=== PATIENT | female | born 1975 | race Caucasian/White ===

== ENCOUNTER 2017-02-17 17:19 | Emergency (ER) | payer OTHER ==
[2017-02-17] MEDS ORDERED: NALBUPHINE HCL 20 MG/ML AMPUL IM ONE (17:32)
[2017-02-17] MEDS ORDERED: ONDANSETRON 4 MG TAB.RAPDIS PO ONE (17:32)
[2017-02-17] MEDS ORDERED: NORMAL SALINE 500 ML IV ONE (17:32)
--- NOTE | 2017-02-17 17:46 | ERNOTE ---
Headache ER HPI - Narrative Date of Service: 02/17/17 - General Presenting Symptoms: "migraine" Time Seen by Provider: 02/17/17 17:24 Source: patient Exam Limitations: no limitations - Immun/Allergies/Home Medications Immunizations: IMMUNIZATION HX Immunizations Up to Date Yes History of Influenza Vaccine No Hx Pneumococcal Vaccination No Allergies/Adverse Reactions: Allergies cefaclor [From Ceclor] Allergy (Verified 02/17/17 17:33) ketorolac tromethamine [From Toradol] Allergy (Verified 02/17/17 17:33) Penicillins Allergy (Verified 02/17/17 17:33) sumatriptan [From Imitrex] Allergy (Verified 02/17/17 17:33) sumatriptan succinate [From Imitrex] Allergy (Verified 02/17/17 17:33) topiramate [From Topamax] Allergy (Verified 02/17/17 17:33) surgical tape Adverse Reaction (Severe, Uncoded 02/17/17 17:33) Other Home Medications: HOME MEDICATIONS Spironolactone [Aldactone] 25 mg PO DAILY 06/22/12 [Last Taken 07/04/12 10:00] Furosemide [Lasix] 160 mg PO DAILY 07/04/12 [Last Taken 07/04/12 10:00] Carvedilol [Coreg] 37.5 mg PO BID 02/03/13 [Last Taken Unknown] Digoxin [Lanoxin] 0.125 mg PO DAILY 02/03/13 [Last Taken Unknown] Potassium Chloride 20 meq PO DAILY 02/03/13 [Last Taken Unknown] Insulin Lispro [Humalog] 0 - 24 units SC AC #0 vial 02/04/13 [Last Taken Unknown ] Nitroglycerin [Nitrostat] 0.4 mg SL PRN PRN #0 btl 02/04/13 [Last Taken Unknown] Insulin Glargine,Hum.rec.anlog [Lantus] 20 unit SQ DAILY 08/08/13 [Last Taken Unknown] Losartan Potassium [Cozaar] 100 mg PO DAILY 03/24/14 [Last Taken Unknown] hydrALAZINE HCL [Apresoline] 50 mg PO TID 01/02/16 [Last Taken Unknown] Cyclobenzaprine HCl [Flexeril] 10 mg PO TID PRN #9 tablet 03/26/16 [Last Taken Unknown] - Pain Pain Score: 6 - History of Present Illness Narrative: 42-year-old female presents to the emergency room for migraine. Patient states it is behind her left eye. Vision states she's had this headache for 2 days now her [id number] medications are not helping. Date (Duration): 02/17/17 Timing of Headache: constant Context Headache: Present: new onset Quality: Present: pressure Severity Maximum: Present: mild Severity-Currently: Present: mild Headache frequency: Present: similar to previous headache Modifying Factors - (Worsens): Reports: movement, exposure to light Associated Symptoms: Reports: denies symptoms Exacerbated by:: Reports: light, noise Prior Treament: Reports: similar symptoms before Review of Systems - Review of Systems Constitutional: Present: no symptoms reported EYE: Present: no symptoms reported ENT: Present: no symptoms reported Respiratory: Present: no symptoms reported Cardiology: Present: no symptoms reported Gastrointestinal/Abdominal: Present: nausea, vomiting Genitourinary: Present: no symptoms reported Musculoskeletal: Present: no symptoms reported Skin: Present: no symptoms reported Neurological: Present: See HPI, headache Endocrine: Present: no symptoms reported Hematologic/Lymphatic: Present: no symptoms reported Psych: Present: no symptoms reported All Other Systems: All systems neg except as marked - Patient's Past Medical History Patient History - Medical: Migraines, Other Patient History - Cardiac/Respiratory: Bronchitis, CHF Patient History - Cancer: No Hx of Cancer Patient History - Surgical Procedures: D & C, Tubal Ligation, T & A, Other Patient History - Other: None LMP (females 10-50): last week - Social History Living Situations: home Psych History: No pertinent hx Smoking Status: Current every day smoker Alcohol Use: none Drug Use: none - Immunizations Immunizations Up to Date: Yes Hx Pneumococcal Vaccination: No History of Influenza Vaccine: No Physical Exam - Physical Exam General Appearance: Present: wd/wn, alert, mild distress Head Exam: Present: normal inspection, no evidence of injury Eye Exam: Normal inspection: bilateral Ears, Nose, Throat: Present: normal ENT inspection Neck: Present: normal inspection, nontender Respiratory: Present: no respiratory distress, normal breath sounds, no accessory muscle use, chest nontender, lungs clear Cardiovascular/Chest: Present: no murmur, normal peripheral pulses, tachycardia Gastrointestinal/Abdominal: Present: normal bowel sounds, nontender, nondistended, soft, no organomegaly Back Exam: Present: normal inspection, normal range of motion, no CVA tenderness , no vertebral tenderness Extremity Exam: Present: normal inspection, non-tender, normal range of motion Neurological Exam: Present: alert, oriented, normal mood/affect, no motor/ sensory deficits Skin Exam: Present: normal color, warm/dry Lymphatic Exam: Present: no adenopathy ED Progress - Vital Signs Patient's Vital Signs:: I have reviewed the patient's vital signs. Vital Signs: Vital Signs 02/17/17 17:28 Temperature 36.3 C L Pulse Rate 121 H Respiratory 17 Rate Blood Pressure 141/82 O2 Sat by Pulse 97 Oximetry - Progress/Reassessment Chief Complaint: Headache Progress:: Improved Plan - Plan Plan: patient states that she is feeling better and wants to go home. Departure Clinical Impression: Migraine Qualifiers: Migraine type: unspecified Status migrainosus presence: without status migrainosus Intractability: not intractable Qualified Code(s): G43.909 - Migraine, unspecified, not intractable, without status migrainosus - Departure Disposition: Home self-care Condition: Stable Instructions: Migraine Headache, [id number] Additional Instructions: Continue previous home medications. Follow-up with your primary care provider in the next 2-3 days if needed. Return to the emergency room if symptoms return. Referrals: Phil Pinto DO [Primary Care Provider] -
[2017-02-17] MEDS ORDERED: ONDANSETRON 4 MG TAB.RAPDIS ONE ×2 (17:52→18:01)
[2017-02-17] MEDS ORDERED: NALBUPHINE HCL 20 MG/ML AMPUL ONE (17:52)
[2017-02-17 18:49] VITALS: BP 139/103
== END 2017-02-17 18:58 | disposition home or self-care (01) ==
LOC: ER 17:19
DX: G43.909 Migraine, unspecified, not intractable, without status migrainosus (principal)

== ENCOUNTER 2017-03-26 16:35 | Emergency (ER) | payer OTHER ==
[2017-03-26 17:12] LABS: Hematocrit 44.2 % (37.0-47.0); Hemoglobin 14.9 gm/dL (12.5-16.0); Mean Cell Volume 86.8 fl (78-100); Mean Corpuscular Hemoglobin 29.3 pg (27-31); Mean Corpuscular Hgb Conc 33.7 g/dl (32-36); Mean Platelet Volume 8.6 fl (6.0-9.5); Neutrophil # 7.2 K/mm3 (1.3-6.0); Platelet Count 381 K/mm3 (150-450); Red Blood Count 5.09 M/mm3 (4.2-5.4); Red Cell Distribution Width 13.9 % (11.5-14.0); White Blood Count 12.9 K/mm3 (4.0-10.5)
--- NOTE | 2017-03-26 17:20 | ERNOTE ---
Lower Extremity HPI - Narrative Date of Service: 03/26/17 - General Lower Extremities Pain: ankle: right Time Seen by Provider: 03/26/17 16:49 Source: patient Exam Limitations: no limitations - Immun/Allergies/Home Medications Immunizations: IMMUNIZATION HX Immunizations Up to Date Yes History of Influenza Vaccine No Hx Pneumococcal Vaccination No Allergies/Adverse Reactions: Allergies Allergy/AdvReac Type Severity Reaction Status Date / Time cefaclor [From Ceclor] Allergy Verified 03/26/17 16:48 ketorolac tromethamine Allergy Verified 03/26/17 16:48 [From Toradol] Penicillins Allergy Verified 03/26/17 16:48 sumatriptan [From Imitrex] Allergy Verified 03/26/17 16:48 sumatriptan succinate Allergy Verified 03/26/17 16:48 [From Imitrex] topiramate [From Topamax] Allergy Verified 03/26/17 16:48 surgical tape AdvReac Severe Other Uncoded 03/26/17 16:48 Home Medications: HOME MEDICATIONS Spironolactone [Aldactone] 25 mg PO DAILY 06/22/12 [Last Taken 07/04/12 10:00] Furosemide [Lasix] 160 mg PO DAILY 07/04/12 [Last Taken 07/04/12 10:00] Carvedilol [Coreg] 37.5 mg PO BID 02/03/13 [Last Taken Unknown] Digoxin [Lanoxin] 0.125 mg PO DAILY 02/03/13 [Last Taken Unknown] Potassium Chloride 20 meq PO DAILY 02/03/13 [Last Taken Unknown] Insulin Lispro [Humalog] 0 - 24 units SC AC #0 vial 02/04/13 [Last Taken Unknown ] Nitroglycerin [Nitrostat] 0.4 mg SL PRN PRN #0 btl 02/04/13 [Last Taken Unknown] Insulin Glargine,Hum.rec.anlog [Lantus] 25 unit SQ DAILY 08/08/13 [Last Taken Unknown] Losartan Potassium [Cozaar] 100 mg PO DAILY 03/24/14 [Last Taken Unknown] hydrALAZINE HCL [Apresoline] 75 mg PO BID 01/02/16 [Last Taken Unknown] traMADol HCL [Tramadol HCl] 50 mg PO QID PRN #10 tablet 03/26/17 [Last Taken Unknown] - History of Present Illness Narrative: Pt. comes in with c/o R ankle pain for five days. Pt. states that she has a hx of chronic ankle problems with multiple issues including sprains and pathologic fractures. Pt. states that her ankle will occasionally swell and the pain will flair but then it will resolve with rest after a day or two. Pt. states that she has been resting her ankle using a compression sleeve, using ice and heat and Ibuprofen for the pain with minimal relief but pt. states that ambulating still makes the pain exacerbated. Review of Systems - Review of Systems Constitutional: Present: no symptoms reported. Absent: recent illness, fever, chills, weakness, fatigue, malaise EYE: Present: no symptoms reported ENT: Present: no symptoms reported Respiratory: Present: no symptoms reported. Absent: shortness of breath, cough , wheezing Cardiology: Present: no symptoms reported. Absent: chest pain, palpitations, edema Gastrointestinal/Abdominal: Present: no symptoms reported Genitourinary: Present: no symptoms reported Musculoskeletal: Present: joint pain - R ankle pain transverse accross the joint. Absent: back pain Skin: Present: no symptoms reported. Absent: rash, change in color Neurological: Present: no symptoms reported. Absent: headache, dizziness/light- headedness, numbness, tingling - Patient's Past Medical History Patient History - Medical: Migraines Patient History - Cardiac/Respiratory: Bronchitis, CHF Patient History - Cancer: No Hx of Cancer Patient History - Surgical Procedures: D & C, Tubal Ligation, T & A, Other Patient History - Other: None - Social History Living Situations: home Psych History: No pertinent hx Alcohol Use: none Drug Use: none - Immunizations Immunizations Up to Date: Yes Hx Pneumococcal Vaccination: No History of Influenza Vaccine: No Physical Exam - Physical Exam General Appearance: Present: wd/wn, alert, no apparent distress Head Exam: Present: normal inspection, no evidence of injury Eye Exam: Normal inspection: bilateral, PERRL: bilateral Respiratory: Present: no respiratory distress, normal breath sounds, no accessory muscle use, chest nontender, lungs clear Cardiovascular/Chest: Present: regular rate, rhythm, no murmur, normal peripheral pulses Back Exam: Present: normal inspection Extremity Exam: Present: normal range of motion - without resistance, decreased range of motion - extension against resistance, joint swelling - R ankle. Absent: joint redness Neurological Exam: Present: alert, oriented, normal mood/affect, no motor/ sensory deficits Skin Exam: Present: normal color, warm/dry. Absent: pallor, skin rash ED Progress - Date and Time Seen: Date and Time: 03/26/17 17:18 Joint is not red or hot so I believe that this is not likely septic joint and p. has a chronic history of this so I feel taht this is likely inflammatory flair due to improper healing of previous sprains so will refer pt. to ortho after wrapping ankle with leon wrap. 03/26/17 17:35 As I am unable to completely rule out acute abnormality although unlikely due to pt. history I will have pt. toe touch weight bearing only until seen by ortho. - Results and Orders Patient's Lab Results:: I have reviewed the patient's lab results. - Vital Signs Patient's Vital Signs:: I have reviewed the patient's vital signs. Vital Signs: Vital Signs 03/26/17 16:44 Temperature 36.3 C L Pulse Rate 121 H Respiratory 12 Rate Blood Pressure 163/115 O2 Sat by Pulse 96 Oximetry - X-Ray X-Ray #1 X-Ray: ankle Interpretation: Interp. by me X-ray Comments: no obvious acute ossious abnormalities however on lateral view there is a bone island noted which could be fracture related or possible achilles tendinopathy calcification. - Progress/Reassessment Chief Complaint: Ankle Injury/ Pain Progress:: Unchanged Departure Clinical Impression: Ankle pain, right Qualifiers: Chronicity: chronic Qualified Code(s): M25.571 - Pain in right ankle and joints of right foot; G89.29 - Other chronic pain - Departure Disposition: Home self-care Condition: Good Instructions: Ankle Sprain, [id number] Additional Instructions: Please use crutches and leon wrap daily until seen by orthopedics May toe touch weight bear only and must keep foot elevated with ice and heat alternating. Please call Orthopedics office for appointment in the morning. Referrals: Phil Pinto DO [Primary Care Provider] - Prescriptions: traMADol HCL [Tramadol HCl] 50 mg PO QID PRN #10 tablet PRN Reason: Pain
[2017-03-26 17:57] VITALS: BP 153/108
== END 2017-03-26 17:52 | disposition home or self-care (01) ==
LOC: ER 16:35
DX: M25.571 Pain in right ankle and joints of right foot (principal); G89.29 Other chronic pain

== ENCOUNTER 2017-03-30 08:14 | Emergency (ER) | payer OTHER ==
[2017-03-30] MEDS ORDERED: DIPHTH,PERTUSS(ACELL),TET VAC 0.5 ML VIAL IM ONE ×2 (08:17→08:33)
[2017-03-30] MEDS ORDERED: HYDROcodone/ACETAMINOPHEN 1 EACH TABLET PO ONE (08:22)
[2017-03-30] MEDS ORDERED: CLINDAMYCIN HCL 150 MG CAPSULE PO ONE (08:24)
[2017-03-30] MEDS ORDERED: CIPROFLOXACIN HCL 250 MG TABLET PO ONE (08:24)
--- NOTE | 2017-03-30 08:36 | ERNOTE ---
Animal Bite ER Date of Service: 03/30/17 Presenting Symptoms: scratched, bitten Time Seen by Provider: 03/30/17 08:15 Source: patient Exam Limitations: no limitations Immunizations: IMMUNIZATION HX Immunizations Up to Date Yes History of Influenza Vaccine No Hx Pneumococcal Vaccination No Allergies/Adverse Reactions: Allergies cefaclor [From Ceclor] Allergy (Verified 03/26/17 16:48) ketorolac tromethamine [From Toradol] Allergy (Verified 03/26/17 16:48) Penicillins Allergy (Verified 03/26/17 16:48) sumatriptan [From Imitrex] Allergy (Verified 03/26/17 16:48) sumatriptan succinate [From Imitrex] Allergy (Verified 03/26/17 16:48) topiramate [From Topamax] Allergy (Verified 03/26/17 16:48) surgical tape Adverse Reaction (Severe, Uncoded 03/26/17 16:48) Other Home Medications: HOME MEDICATIONS Spironolactone [Aldactone] 25 mg PO DAILY 06/22/12 [Last Taken 07/04/12 10:00] Furosemide [Lasix] 160 mg PO DAILY 07/04/12 [Last Taken 07/04/12 10:00] Carvedilol [Coreg] 37.5 mg PO BID 02/03/13 [Last Taken Unknown] Digoxin [Lanoxin] 0.125 mg PO DAILY 02/03/13 [Last Taken Unknown] Potassium Chloride 20 meq PO DAILY 02/03/13 [Last Taken Unknown] Insulin Lispro [Humalog] 0 - 24 units SC AC #0 vial 02/04/13 [Last Taken Unknown ] Nitroglycerin [Nitrostat] 0.4 mg SL PRN PRN #0 btl 02/04/13 [Last Taken Unknown] Insulin Glargine,Hum.rec.anlog [Lantus] 25 unit SQ DAILY 08/08/13 [Last Taken Unknown] Losartan Potassium [Cozaar] 100 mg PO DAILY 03/24/14 [Last Taken Unknown] hydrALAZINE HCL [Apresoline] 75 mg PO BID 01/02/16 [Last Taken Unknown] traMADol HCL [Tramadol HCl] 50 mg PO QID PRN #10 tablet 03/26/17 [Last Taken Unknown] Ciprofloxacin HCl [Cipro] 500 mg PO BID #20 tab 03/30/17 [Last Taken Unknown] Clindamycin HCl [Cleocin HCl] 300 mg PO QID #40 capsule 03/30/17 [Last Taken Unknown] HYDROcodone/ACETAMINOPHEN [[place] 5-325] 1 tab PO Q6H PRN #15 tab 03/30/17 [Last Taken Unknown] Narrative: Patient presents to the ED for a dog bite. This was a friend's dog. The dog was in a cage and a child let the dog out of the cage. [place] Bulldog. The dog attacked her. She had bite and scratches on her legs, arms and right breast. No facial injury. No CP or SOB. No fever. No N/T/W. Pain was severe initially, now better. EMS brought patient to ED. Onset Time: [facility] Location of Incident: Reports: home Animal Type: Reports: dog Animal Appearance: healthy Observation/Capture: Reports: animal known Severity of injury: Reports: bitten, scratched Associated symptoms: Denies: numbness distally, tingling Prior Treatment: Denies: recently seen Review of Systems - Review of Systems Constitutional: Absent: fever Respiratory: Absent: shortness of breath Cardiology: Absent: chest pain Gastrointestinal/Abdominal: Absent: abdominal pain - Patient's Past Medical History Patient History - Medical: Diabetes Type 2 Insulin Dependent, Migraines Patient History - Cardiac/Respiratory: Bronchitis, CHF Patient History - Cancer: No Hx of Cancer Patient History - Surgical Procedures: D & C, Pacemaker, Tubal Ligation, T & A, Other Patient History - Other: None - Social History Living Situations: home Psych History: No pertinent hx Smoking Status: Current every day smoker Have you smoked in the past 12 months: Yes Alcohol Use: none Drug Use: none - Immunizations Immunizations Up to Date: Yes Hx Pneumococcal Vaccination: No History of Influenza Vaccine: No Physical Exam - Physical Exam General Appearance: Present: alert, no apparent distress Head Exam: Present: normal inspection, no evidence of injury Eye Exam: Normal inspection: bilateral, PERRL: bilateral Ears, Nose, Throat: Present: normal ENT inspection Neck: Present: normal inspection Respiratory: Present: no respiratory distress, normal breath sounds, lungs clear Cardiovascular/Chest: Present: regular rate, rhythm, normal peripheral pulses Gastrointestinal/Abdominal: Present: normal bowel sounds, nontender, soft Back Exam: Present: normal range of motion, no vertebral tenderness Extremity Exam: Present: normal range of motion Neurological Exam: Present: alert, normal mood/affect, no motor/sensory deficits , 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 Absent: motor weakness Skin Exam: Present: normal color, warm/dry, other - There are scratches bilateral LE, not requiring repair. Bite near right ankle and right foot., no clear joint involvement clinically. there is a 2cm laceration left medial biceps area, no FBs seen. scattered scratches and small bite kellie right hand. no clear FB or joint involvement. no localizing bone tenderness. Right breast with female RN present, small scratch and puncture wound. Once again no suggestion of fracture, joint involvement or FB. ED Progress - Vital Signs Patient's Vital Signs:: I have reviewed the patient's vital signs. Vital Signs: Vital Signs 03/30/17 08:14 Temperature 36.8 C Pulse Rate 118 H Respiratory 20 Rate Blood Pressure 117/83 O2 Sat by Pulse 98 Oximetry - Progress/Reassessment Chief Complaint: Animal Bite Progress Note-Subjective: 03/30/17 08:[address] Leon who saw the patient, he recommends antibiotics without closure and he will see the patient in the ofice in follow-up this week. Pt agreeable. She has severe PCn allergy. Given need for ABx asnd other allergies/drug interactions will utilize Cipro and Clinda, risks outweigh benefits. Departure Clinical Impression: Dog bite - Departure Disposition: Home self-care Condition: Stable Instructions: Animal Bite Additional Instructions: Animal Control has been Notified. Take antibiotics as directed. No driving with pain medications. You will be seen in the office by the Surgeon, who discussed this with you, please call for an appointment time. Return here for signs of infection, increased pain, fever or if your condition worsens or changes in any way. Use Neosporin on areas as well. Prescriptions: Ciprofloxacin HCl [Cipro] 500 mg PO BID #20 tab Clindamycin HCl [Cleocin HCl] 300 mg PO QID #40 capsule HYDROcodone/ACETAMINOPHEN [[place] 5-325] 1 tab PO Q6H PRN #15 tab PRN Reason: Pain
[2017-03-30] MEDS ORDERED: HYDROcodone/ACETAMINOPHEN 1 EACH TABLET ONE (08:43)
[2017-03-30] MEDS ORDERED: CLINDAMYCIN HCL 150 MG CAPSULE ONE (08:44)
[2017-03-30] MEDS ORDERED: CIPROFLOXACIN HCL 250 MG TABLET ONE (08:44)
[2017-03-30 09:23] VITALS: BP 120/87
== END 2017-03-30 09:15 | disposition home or self-care (01) ==
LOC: ER 08:14
DX: S91.051A Open bite, right ankle, initial encounter (principal); S91.351A Open bite, right foot, initial encounter; S41.152A Open bite of left upper arm, initial encounter; S61.451A Open bite of right hand, initial encounter; S21.051A Open bite of right breast, initial encounter; W54.0XXA Bitten by dog, initial encounter; Y93.F9 Activity, other caregiving; Y92.009 Unspecified place in unspecified non-institutional (private) residence as the place of occurrence of the external cause; Y99.8 Other external cause status; Z23 Encounter for immunization

== ENCOUNTER 2017-05-05 22:19 | Emergency (ER) | payer OTHER ==
[2017-05-05] MEDS ORDERED: ONDANSETRON HCL/PF 2 MG/ML VIAL IV ONE (23:17)
[2017-05-05] MEDS ORDERED: ORPHENADRINE CITRATE 30 MG/ML VIAL IV ONE (23:17)
[2017-05-05] MEDS ORDERED: METHYLPREDNISOLONE SOD SUCC/PF 125 MG/2 ML VIAL IV ONE (23:17)
[2017-05-05] MEDS ORDERED: NORMAL SALINE 1,000 ML IV ONE (23:17)
[2017-05-05] MEDS ORDERED: diphenhydrAMINE HCL 50 MG/ML VIAL IV ONE (23:19)
--- NOTE | 2017-05-05 23:20 | ERNOTE ---
Headache ER HPI - General Presenting Symptoms: "migraine" Time Seen by Provider: 05/05/17 23:08 Source: patient - Immun/Allergies/Home Medications Immunizations: IMMUNIZATION HX Immunizations Up to Date Yes History of Influenza Vaccine No Hx Pneumococcal Vaccination Yes Allergies/Adverse Reactions: Allergies cefaclor [From Ceclor] Allergy (Verified 03/26/17 16:48) ketorolac tromethamine [From Toradol] Allergy (Verified 03/26/17 16:48) Penicillins Allergy (Verified 03/26/17 16:48) sumatriptan [From Imitrex] Allergy (Verified 03/26/17 16:48) sumatriptan succinate [From Imitrex] Allergy (Verified 03/26/17 16:48) topiramate [From Topamax] Allergy (Verified 03/26/17 16:48) surgical tape Adverse Reaction (Severe, Uncoded 03/26/17 16:48) Other Home Medications: HOME MEDICATIONS Spironolactone [Aldactone] 25 mg PO DAILY 06/22/12 [Last Taken 07/04/12 10:00] Furosemide [Lasix] 160 mg PO DAILY 07/04/12 [Last Taken 07/04/12 10:00] Carvedilol [Coreg] 37.5 mg PO BID 02/03/13 [Last Taken Unknown] Digoxin [Lanoxin] 0.125 mg PO DAILY 02/03/13 [Last Taken Unknown] Potassium Chloride 20 meq PO DAILY 02/03/13 [Last Taken Unknown] Insulin Lispro [Humalog] 0 - 24 units SC AC #0 vial 02/04/13 [Last Taken Unknown ] Nitroglycerin [Nitrostat] 0.4 mg SL PRN PRN #0 btl 02/04/13 [Last Taken Unknown] Insulin Glargine,Hum.rec.anlog [Lantus] 25 unit SQ DAILY 08/08/13 [Last Taken Unknown] Losartan Potassium [Cozaar] 100 mg PO DAILY 03/24/14 [Last Taken Unknown] hydrALAZINE HCL [Apresoline] 75 mg PO BID 01/02/16 [Last Taken Unknown] - Pain Pain Score: 9 - History of Present Illness Narrative: Headache started yesterday behind her left eye. She has only had one other headache in the past year and a half. Activity at onset: exertion Timing of Headache: gradual Quality: Present: pressure Severity Maximum: Present: severe Severity-Currently: Present: severe Headache frequency: Present: no recent headache, similar to previous headache Modifying Factors - (Improves): Reports: rest Modifying Factors - (Worsens): Reports: movement, exposure to light - Patient's Past Medical History Patient History - Medical: Diabetes Type 2 Insulin Dependent, Migraines Patient History - Cardiac/Respiratory: Arrhythmias, Bronchitis, Cardiomyopathy, CHF, Other Patient History - Cancer: No Hx of Cancer Patient History - Surgical Procedures: D & C, Pacemaker, Tubal Ligation, T & A, Other Patient History - Other: None LMP (females 10-50): this week - Social History Living Situations: home Psych History: No pertinent hx Smoking Status: Current every day smoker Have you smoked in the past 12 months: Yes Do you dip or chew tobacco: No Alcohol Use: none Drug Use: none - Immunizations Immunizations Up to Date: Yes Hx Pneumococcal Vaccination: Yes History of Influenza Vaccine: No Physical Exam - Physical Exam General Appearance: Present: wd/wn, alert, mild distress, moderate distress Head Exam: Present: normal inspection, no evidence of injury Eye Exam: Normal inspection: bilateral, EOMI: bilateral Neck: Present: normal inspection, nontender, supple Respiratory: Present: no respiratory distress, no accessory muscle use Neurological Exam: Present: alert, oriented, no motor/sensory deficits Skin Exam: Present: normal color, warm/dry ED Progress - Vital Signs Vital Signs: Vital Signs 05/05/17 22:27 Temperature 36.7 C Pulse Rate 110 H Respiratory 16 Rate Blood Pressure 146/101 O2 Sat by Pulse 100 Oximetry - Progress/Reassessment Chief Complaint: Headache Departure Clinical Impression: Migraine Qualifiers: Migraine type: without aura Status migrainosus presence: without status migrainosus Intractability: not intractable Qualified Code(s): G43.009 - Migraine without aura, not intractable, without status migrainosus - Departure Disposition: Home self-care Condition: Good Instructions: Migraine Headache, [id number] Referrals: Phil Pinto DO [Primary Care Provider] -
[2017-05-05] MEDS ORDERED: diphenhydrAMINE HCL 50 MG/ML VIAL ONE (23:43)
[2017-05-05] MEDS ORDERED: METHYLPREDNISOLONE SOD SUCC/PF 125 MG/2 ML VIAL ONE (23:43)
[2017-05-05] MEDS ORDERED: ONDANSETRON HCL/PF 2 MG/ML VIAL ONE (23:43)
[2017-05-05] MEDS ORDERED: ORPHENADRINE CITRATE 30 MG/ML VIAL ONE (23:43)
[2017-05-06 00:38] VITALS: BP 131/88
== END 2017-05-06 00:37 | disposition home or self-care (01) ==
LOC: ER 22:19
DX: G43.009 Migraine without aura, not intractable, without status migrainosus (principal); F17.200 Nicotine dependence, unspecified, uncomplicated; E11.9 Type 2 diabetes mellitus without complications; Z79.4 Long term (current) use of insulin; I49.9 Cardiac arrhythmia, unspecified; I42.9 Cardiomyopathy, unspecified; I50.9 Heart failure, unspecified; Z95.0 Presence of cardiac pacemaker
CPT/HCPCS: 96374; 96375; 99284; J2405

== ENCOUNTER 2019-01-02 21:25 | Observation (INO) ==
[2019-01-02] MEDS ORDERED: ASPIRIN 81 MG TAB.CHEW PO ONE (21:53)
[2019-01-02 22:05] LABS: Hematocrit 44.9 % (37.0-47.0); Hemoglobin 14.5 gm/dL (12.5-16.0); Mean Cell Volume 93.7 fl (78-100); Mean Corpuscular Hemoglobin 30.3 pg (27-31); Mean Corpuscular Hgb Conc 32.3 g/dl (32-36); Mean Platelet Volume 9.1 fl (8-12.5); Neutrophil # 4.7 K/mm3 (1.3-6.0); Platelet Count 306 K/mm3 (150-450); Red Blood Count 4.79 M/mm3 (4.2-5.4); Red Cell Distribution Width 14.4 % (11.5-14.0); White Blood Count 9.4 K/mm3 (4.0-10.5)
[2019-01-02 22:24] LABS: Albumin * 3.1 gm/dl (3.4-5.0); BUN/Creatinine Ratio 13.3 (9.0-21.6); Bilirubin, Total 0.4 mg/dL (0.0-1.1); Ca. Corrected For Albumin 9.5 mg/dL (8.4-10.2); Calcium * 9.1 mg/dL (7.9-10.9); Carbon Dioxide 28.1 mmol/L (24-32.6); Potassium 4.1 mmol/L (3.4-4.6); Total Protein 7.4 gm/dL (6.2-8.2); Troponin I 0.027 ng/mL (0.00-0.10)
[2019-01-02] MEDS ORDERED: NITROGLYCERIN 0.4 MG/TAB BTL SL ONE (22:29)
[2019-01-02] MEDS ORDERED: NITROGLYCERIN 1 INCH PACKET TD ONE (22:29)
--- NOTE | 2019-01-02 22:33 | ERNOTE ---
Chest Pain/Cardiac HPI Date of Service: 01/02/19 Chief Complaint: Chest Pain Time Seen by Provider: 01/02/19 21:39 Source: patient Immunizations: IMMUNIZATION HX Immunizations Up to Date Yes History of Influenza Vaccine No Hx Pneumococcal Vaccination Yes Allergies/Adverse Reactions: Allergies codeine Allergy (Severe, Verified 01/03/19 02:45) Other penicillin G Allergy (Severe, Verified 01/03/19 02:45) Shortness of Breath ketorolac tromethamine [From Toradol] Allergy (Intermediate, Verified 01/03/19 02:45) Other cefaclor [From Ceclor] Allergy (Verified 01/03/19 02:45) Penicillins Allergy (Verified 01/03/19 02:45) sumatriptan [From Imitrex] Allergy (Verified 01/03/19 02:45) sumatriptan succinate [From Imitrex] Allergy (Verified 01/03/19 02:45) topiramate [From Topamax] Allergy (Verified 01/03/19 02:45) surgical tape Adverse Reaction (Severe, Uncoded 01/03/19 02:45) Other Home Medications: HOME MEDICATIONS Spironolactone [Aldactone] 25 mg PO DAILY 06/22/12 [Last Taken 07/04/12 10:00] Furosemide [Lasix] 160 mg PO DAILY 07/04/12 [Last Taken 07/04/12 10:00] Carvedilol [Coreg] 37.5 mg PO BID 02/03/13 [Last Taken Unknown] Digoxin [Lanoxin] 0.125 mg PO DAILY 02/03/13 [Last Taken Unknown] Potassium Chloride 20 meq PO DAILY 02/03/13 [Last Taken Unknown] Insulin Lispro [Humalog] 0 - 24 units SC AC #0 vial 02/04/13 [Last Taken Unknown] Nitroglycerin [Nitrostat] 0.4 mg SL PRN PRN #0 btl 02/04/13 [Last Taken Unknown] Insulin Glargine,Hum.rec.anlog [Lantus] 25 unit SQ DAILY 08/08/13 [Last Taken Unknown] hydrALAZINE HCL [Apresoline] 75 mg PO TID 01/02/16 [Last Taken Unknown] Ivabradine HCl [Corlanor] 5 mg PO BID 01/02/19 [Last Taken Unknown] Metoprolol Tartrate [Lopressor] 50 mg PO DAILY 01/02/19 [Last Taken Unknown] Aspirin [Aspirin EC] 81 mg PO DAILY 01/03/19 [Last Taken Unknown] Valsartan 80 mg PO DAILY 01/03/19 [Last Taken Unknown] Narrative: This is a 43-year-old female brought in by a police officer booking. The patient reports that she has a history of cardiomyopathy, not certain why. This was first diagnosed in 2004. She had a permanent pacemaker with AICD placed. The patient says since then she has occasional episodes where she gets a sharp substernal pain which she describes as a pinching or stabbing kind of pain. It will last for a minute or 2 and then go away. She notes that if she massages her sternum the symptoms seem to get a bit better. The patient says she had an episode of this around 330 this afternoon when she was cooking. She got a bit dizzy and says that she went and sat down massaged herself and the symptoms went away within a couple of minutes. She actually fell asleep and then when she woke up 20 minutes later the symptoms were completely gone. She did not worry too much about it. This evening the patient was driving and was stopped by the police. She appar ently does not have a license which is valid. She was placed under arrest. As she was getting booked through the [facility] the patient says she started to develop a left-sided chest pain which was sharp and stabbing radiating through to her back. She says she got very sweaty and started having pain down her left arm. She says she got dizzy and had some shortness of breath. No nausea or vomiting. Because of the symptoms in her history she was brought to the ER. The patient denies any illegal drug use. She is a diabetic and does have high cholesterol as well as tobacco abuse. She denies high blood pressure but she is on medicines for her heart with the cardiomyopathy. No family history of early cardiac disease. She has never had a heart attack that she is aware of. Review of Systems - Review of Systems Constitutional: Present: See HPI EYE: Present: no symptoms reported ENT: Present: no symptoms reported Respiratory: Present: shortness of breath Cardiology: Present: chest pain Gastrointestinal/Abdominal: Present: no symptoms reported. Absent: nausea, vomiting, diarrhea, constipation Genitourinary: Present: no symptoms reported Musculoskeletal: Present: See HPI, back pain, other - Left arm pain Skin: Present: no symptoms reported Neurological: Present: no symptoms reported Endocrine: Present: no symptoms reported Hematologic/Lymphatic: Present: no symptoms reported Psych: Present: no symptoms reported All Other Systems: All systems neg except as marked Medical History (Updated 01/03/19 @ 02:43 by Yazmin Chin RN) CHF (congestive heart failure) (Acute) With Left Ventricular changes. Sees Dr. 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 West Started Entresto in December 2017 Diabetic acidosis, type II Hx of migraines Insomnia Nervousness Surgical History: Surgical History (Updated 03/31/18 @ 19:09 by Carmelo Bhakta RN) History of tonsillectomy (Acute) This was done twice once in 1995 Grew back and had done again 2002 Hx of tubal ligation ICD (implantable cardioverter-defibrillator), biventricular, in situ Family History: Family History (Last Reviewed 01/03/19 @ 02:43 by Yazmin Chin RN) Father HX: breast cancer Hx of ovarian cancer Hx of colon cancer, stage IV No relevant family history Mother HX: breast cancer Hx of ovarian cancer Brother Hx of skin cancer, basal cell Uncle Brain cancer Lung cancer Social History: Preferred Language Slovenian Do you have any anabaptist or No cultural preference? Smoking Status Current every day smoker Psych History No pertinent hx Alcohol Use none Drug Use none No Social History Section defined Physical Exam - Physical Exam General Appearance: Present: wd/wn, alert, no apparent distress Head Exam: Present: normal inspection, no evidence of injury Eye Exam: Normal inspection: bilateral, PERRL: bilateral, EOMI: bilateral Ears, Nose, Throat: Present: normal ENT inspection, normal pharynx Neck: Present: normal inspection, nontender Respiratory: Present: no respiratory distress, normal breath sounds, lungs clear, other - No crackles wheezing or coughing Cardiovascular/Chest: Present: regular rate, rhythm, no murmur, other - Heart rate is right around 100. Do not hear any murmurs Gastrointestinal/Abdominal: Present: normal bowel sounds, nontender, nondistended, soft Back Exam: Present: normal inspection, normal range of motion, no CVA tenderness, no vertebral tenderness Extremity Exam: Present: normal inspection, non-tender, no edema Neurological Exam: Present: alert, oriented, normal mood/affect, no motor/sensory deficits Skin Exam: Present: normal color, warm/dry Lymphatic Exam: Present: no adenopathy Progress - Results and Orders Patient's Lab Results:: I have reviewed the patient's lab results. - Vital Signs Patient's Vital Signs:: I have reviewed the patient's vital signs. Vital Signs: Vital Signs 01/02/19 21:35 Temperature 35.9 C L Pulse Rate 110 H Respiratory Rate 20 Blood Pressure 154/105 H O2 Sat by Pulse Oximetry 97 - EKG EKG #1 EKG read: Interp. by me - Patient has an EKG showing sinus tach ventricular rate of 119. Normal axis. Normal intervals. QTc is 546. No ST elevation. T wave inversion in 1 and aVL. - X-Ray X-Ray #1 X-Ray: chest Interpretation: Interp. by me X-ray Comments: Permanent pacemaker is in place. Leads look okay. No signs of acute cardiopulmonary disease - Progress/Reassessment Chief Complaint: Chest Pain Departure Clinical Impression: Chest pain Qualifiers: Chest pain type: other chest pain Qualified Code(s): R07.89 - Other chest pain; R07.8 - Other chest pain - Departure Disposition: Still a patient Condition: Good
[2019-01-02 22:49] LABS: Digoxin 0.1 ng/mL (0.5-2.0)
[2019-01-02] MEDS ORDERED: MORPHINE SULFATE 2 MG/ML DISP.SYRIN IV ONE (23:00)
[2019-01-02 23:48] LABS: Urine Bilirubin Negative (NEGATIVE); Urine Blood Negative /ul (NEGATIVE); Urine Ketone Negative (NEGATIVE); Urine Nitrite Negative (NEGATIVE); Urine Protein Negative (NEGATIVE); Urine Urobilinogen Normal (NORMAL)
[2019-01-03] LABS: Urine Appearance Clear (CLEAR); Urine Bacteria TRACE; Urine Color Yellow; Urine RBC None Seen /hpf (0-5); Urine WBC TRACE /hpf (0-5)
[2019-01-03] MEDS ORDERED: NORMAL SALINE 1,000 ML IV ONE (00:11)
[2019-01-03 00:21] LABS: Cocaine Ur Negative (NEGATIVE); Urine Barbiturate Negative (NEGATIVE); Urine Benzodiazepines Negative (NEGATIVE); Urine PCP Negative (NEGATIVE); Urine THC Negative (NEGATIVE)
[2019-01-03 00:24] LABS: Urine Opiates Positive (NEGATIVE)
[2019-01-03] MEDS ORDERED: NORMAL SALINE 1,000 ML IV PRN (09:17)
[2019-01-03] MEDS ORDERED: FUROSEMIDE 10 MG/ML VIAL IV ONE (09:23)
[2019-01-03] MEDS ORDERED: ACETAMINOPHEN 325 MG TABLET PO PRN (10:21)
[2019-01-03] MEDS ORDERED: NITROGLYCERIN 0.4 MG/TAB BTL SL PRN (10:22)
[2019-01-03] MEDS ORDERED: Ivabradine Hcl [Corlanor] 5 MG PO SCH (10:30)
[2019-01-03] MEDS ORDERED: INSULIN GLARGINE,HUM.REC.ANLOG 100 UNITS/ML VIAL SC SCH (10:30)
[2019-01-03] MEDS ORDERED: METOPROLOL TARTRATE 50 MG TABLET PO SCH (10:30)
--- NOTE | 2019-01-03 10:39 | HP ---
Chief Complaint - Chief Complaint Date of Service: 01/03/19 Time of Service: 09:25 Chief Complaint: Chest pain, tachycardia, recreational drug use History of Present Illness: 43-year-old female brought into the ER last night by the police after being pulled over and not been able to provide valid documentation of legality to driving. Suddenly developed chest pain is brought in for chest pain work-up. Troponins negative initially. She has been tachycardic and did endorse shortness of breath. D-dimer was slightly positive. Brought to the floor where she is now awaiting a CT of the chest to rule out pulmonary embolus. Her urine was positive for opiates as well as amphetamines. She has significant cardiac history, currently under treatment by the [facility] under cardiology as well as electrophysiology. She has a pacemaker defibrillator in place. Currently she feels well and is wanting to leave AMA. She states she is willing to stay for the CTA. Of note she did have a couple runs of V. tach last night, roughly 5-8 beats. She is on a beta-carole but only takes metoprolol tartrate once daily. Heart rate has ranged from anywhere from 130 at its high last night when she first came into 110 and most recently. Currently she denies any symptoms that she feels well. She denies chest pain, shortness of breath, some swelling in her legs, dizziness, nausea/vomiting. Chest x-ray showed no acute cardiopulmonary process. Medical History (Updated 01/03/19 @ 07:31 by Manny Arceo MD) CHF (congestive heart failure) (Acute) With Left Ventricular changes. Sees Dr. 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 West Started Entresto in December 2017 Diabetic acidosis, type II Hx of migraines Insomnia Nervousness Surgical History: Surgical History (Updated 03/31/18 @ 19:09 by Carmelo Bhakta RN) History of tonsillectomy (Acute) This was done twice once in 1995 Grew back and had done again 2002 Hx of tubal ligation ICD (implantable cardioverter-defibrillator), biventricular, in situ Family History: Family History (Last Reviewed 01/03/19 @ 02:43 by Yazmin Chin RN) Father HX: breast cancer Hx of ovarian cancer Hx of colon cancer, stage IV No relevant family history Mother HX: breast cancer Hx of ovarian cancer Brother Hx of skin cancer, basal cell Uncle Brain cancer Lung cancer Social History: Patient Lives/Resources roommate Utilized Preferred Language Yi Do you have any congregational or Yes: Judaism cultural preference? Smoking Status Current every day smoker Have you smoked in the past 12 Yes months Psych History No pertinent hx Alcohol Use none Drug Use none No Social History Section defined Review Of Systems (GEN) - Review of Systems Generalized/Overall Review: Absent: Weakness, Chills, Fever EENTM: Present: No Symptoms Reported Respiratory: Absent: Cough, Shortness of Breath Cardiac: Absent: Chest Pain, Edema, Palpitations Abdominal: Present: No Symptoms Reported Genitourinary: Present: No Symptoms Reported - No Musculoskeletal: Present: No Symptoms Reported Neurological: Present: No Symptoms Reported Skin: Present: No Symptoms Reported Endocrine: Present: No Symptoms Reported Immunizations: IMMUNIZATION HX Immunizations Up to Date Yes History of Influenza Vaccine No Hx Pneumococcal Vaccination Yes Allergies/Adverse Reactions: Allergies Allergy/AdvReac Type Severity Reaction Status Date / Time codeine Allergy Severe Other Verified 01/03/19 02:45 penicillin G Allergy Severe Shortness Verified 01/03/19 02:45 of Breath ketorolac tromethamine Allergy Intermediate Other Verified 01/03/19 02:45 [From Toradol] cefaclor [From Ceclor] Allergy Verified 01/03/19 02:45 Penicillins Allergy Verified 01/03/19 02:45 sumatriptan [From Imitrex] Allergy Verified 01/03/19 02:45 sumatriptan succinate Allergy Verified 01/03/19 02:45 [From Imitrex] topiramate [From Topamax] Allergy Verified 01/03/19 02:45 surgical tape AdvReac Severe Other Uncoded 01/03/19 02:45 Home Medications: HOME MEDICATIONS Spironolactone [Aldactone] 25 mg PO DAILY 06/22/12 [Last Taken 07/04/12 10:00] Furosemide [Lasix] 160 mg PO DAILY 07/04/12 [Last Taken 07/04/12 10:00] Carvedilol [Coreg] 37.5 mg PO BID 02/03/13 [Last Taken Unknown] Digoxin [Lanoxin] 0.125 mg PO DAILY 02/03/13 [Last Taken Unknown] Potassium Chloride 20 meq PO DAILY 02/03/13 [Last Taken Unknown] Insulin Lispro [Humalog] 0 - 24 units SC AC #0 vial 02/04/13 [Last Taken Unknown] Nitroglycerin [Nitrostat] 0.4 mg SL PRN PRN #0 btl 02/04/13 [Last Taken Unknown] Insulin Glargine,Hum.rec.anlog [Lantus] 25 unit SQ DAILY 08/08/13 [Last Taken Unknown] hydrALAZINE HCL [Apresoline] 75 mg PO TID 01/02/16 [Last Taken Unknown] Ivabradine HCl [Corlanor] 5 mg PO BID 01/02/19 [Last Taken Unknown] Metoprolol Tartrate [Lopressor] 50 mg PO DAILY 01/02/19 [Last Taken Unknown] Aspirin [Aspirin EC] 81 mg PO DAILY 01/03/19 [Last Taken Unknown] Valsartan 80 mg PO DAILY 01/03/19 [Last Taken Unknown] Exam - Exam Vital Signs: Vital Signs - Last Taken Temp 36.0 C 01/03/19 07:35 Pulse 112 H 01/03/19 10:12 Resp 20 01/03/19 07:35 BP 127/76 01/03/19 10:12 Pulse Ox 96 01/03/19 07:35 Constitutional: Present: Alert, Oriented x3, No distress ENT Exam: Present: hearing grossly normal. Absent: nasal congestion, nasal drainage Eye Exam: bilateral eye: normal inspection Neck: Present: non-tender, supple Respiratory: Present: lungs clear, normal breath sounds Cardiovascular/Chest: Present: regular rate, rhythm, tachycardia. Absent: systolic murmur, edema Abdomen: Present: Normal bowel sounds, soft, nontender Extremity: Absent: inflammation, lower extremity edema, leg pain, pedal edema Skin Exam: Present: normal color, warm/dry Appearance: Present: disheveled, impaired insight Eye contact: Present: cooperative, good eye contact Thoughts: Present: normal thought pattern Diagnostic Studies: Abnormal Lab Results 01/02/19 01/02/19 01/02/19 Range/Units 22:00 22:00 22:00 RDW 14.4 H (11.5-14.0) % Immature Gran % (Auto) 0.50 H (0.001-0.429) % Immature Gran # (Auto) 0.05 H (0.000-0.0310) K/mm3 Lymphocytes # 3.95 H (1.5-3.5) k/mm3 D-Dimer (0.19-0.49) ug/mL Random Glucose 254 H (70-110) mg/dL ALT 17 L (19-67) U/L B-Natriuretic Peptide 1471 H (5-150) pg/mL Albumin 3.1 L (3.4-5.0) gm/dl Urine Glucose (UA) (NEGATIVE) mg/dL Urine WBC (0-5) /hpf Digoxin 0.1 L (0.5-2.0) ng/mL Urine Opiates Screen (NEGATIVE) Urine Amphetamine (NEGATIVE) 01/02/19 01/02/19 01/02/19 Range/Units 22:00 23:45 23:45 RDW (11.5-14.0) % Immature Gran % (Auto) (0.001-0.429) % Immature Gran # (Auto) (0.000-0.0310) K/mm3 Lymphocytes # (1.5-3.5) k/mm3 D-Dimer 0.58 H (0.19-0.49) ug/mL Random Glucose (70-110) mg/dL ALT (19-67) U/L B-Natriuretic Peptide (5-150) pg/mL Albumin (3.4-5.0) gm/dl Urine Glucose (UA) 100 H (NEGATIVE) mg/dL Urine WBC Trace H (0-5) /hpf Digoxin (0.5-2.0) ng/mL Urine Opiates Screen Positive H (NEGATIVE) Urine Amphetamine Positive H (NEGATIVE) Laboratory Results WBC 9.4 K/mm3 (4.0-10.5) 01/02/19 22:00 RBC 4.79 M/mm3 (4.2-5.4) 01/02/19 22:00 Hgb 14.5 gm/dL (12.5-16.0) 01/02/19 22:00 Hct 44.9 % (37.0-47.0) 01/02/19 22:00 MCV 93.7 fl (78-100) 01/02/19 22:00 MCH 30.3 pg (27-31) 01/02/19 22:00 MCHC 32.3 g/dl (32-36) 01/02/19 22:00 RDW 14.4 % (11.5-14.0) H 01/02/19 22:00 Plt Count 306 K/mm3 (150-450) 01/02/19 22:00 MPV 9.1 fl (8-12.5) 01/02/19 22:00 Immature Gran % (Auto) 0.50 % (0.001-0.429) H 01/02/19 22:00 Immature Gran # (Auto) 0.05 K/mm3 (0.000-0.0310) H 01/02/19 22:00 50.0 % (42-75.0) 01/02/19 22:00 41.9 % (20-51) 01/02/19 22:00 5.6 % (0.0-9) 01/02/19 22:00 1.5 % (0.0-3.0) 01/02/19 22:00 0.5 % (0.0-1.0) 01/02/19 22:00 Nucleated RBC % 0.0 k/mm3 (0-1) 01/02/19 22:00 4.7 K/mm3 (1.3-6.0) 01/02/19 22:00 3.95 k/mm3 (1.5-3.5) H 01/02/19 22:00 0.5 k/mm3 (0.0-1.0) 01/02/19 22:00 0.1 k/mm3 (0.0-0.7) 01/02/19 22:00 Absolute Basophils 0.1 k/mm3 (0.0-0.1) 01/02/19 22:00 0.58 ug/mL (0.19-0.49) H 01/02/19 22:00 Sodium 139 mmol/L (132-142) 01/02/19 22:00 141 mmol/L (130-142) 01/02/19 22:00 Potassium 4.1 mmol/L (3.4-4.6) 01/02/19 22:00 Chloride 102 mmol/L (97-106) 01/02/19 22:00 Carbon Dioxide 28.1 mmol/L (24-32.6) 01/02/19 22:00 13.0 mmol/L (6.8-13.8) 01/02/19 22:00 BUN 12 mg/dL (3-23) 01/02/19 22:00 0.90 mg/dL (0.4-1.4) 01/02/19 22:00 Est GFR (Non-Af Amer) 72 mL/min (60-130) 01/02/19 22:00 13.3 (9.0-21.6) 01/02/19 22:00 254 mg/dL (70-110) H 01/02/19 22:00 Calcium 9.1 mg/dL (7.9-10.9) 01/02/19 22:00 Calcium Adj for Albumin 9.5 mg/dL (8.4-10.2) 01/02/19 22:00 0.4 mg/dL (0.0-1.1) 01/02/19 22:00 AST 15 U/L (0-48) 01/02/19 22:00 ALT 17 U/L (19-67) L 01/02/19 22:00 106 U/L (50-170) 01/02/19 22:00 0.031 ng/mL (0.00-0.10) 01/03/19 05:05 B-Natriuretic Peptide 1471 pg/mL (5-150) H 01/02/19 22:00 7.4 gm/dL (6.2-8.2) 01/02/19 22:00 3.1 gm/dl (3.4-5.0) L 01/02/19 22:00 Yellow 01/02/19 23:45 Clear (CLEAR) 01/02/19 23:45 7.0 pH (5.0-7.0) 01/02/19 23:45 Ur Specific [place] 1.020 SP.GR. (1.005-1.010) 01/02/19 23:45 Negative mg/dL (NEGATIVE) 01/02/19 23:45 100 mg/dL (NEGATIVE) H 01/02/19 23:45 Negative mg/dL (NEGATIVE) 01/02/19 23:45 Negative /ul (NEGATIVE) 01/02/19 23:45 Negative (NEGATIVE) 01/02/19 23:45 Negative mg/dl (NEGATIVE) 01/02/19 23:45 Normal EU/dl (NORMAL) 01/02/19 23:45 Ur Leukocyte Esterase Negative /ul (NEGATIVE) 01/02/19 23:45 None seen /hpf (0-5) 01/02/19 23:45 Trace /hpf (0-5) H 01/02/19 23:45 Ur Epithelial Cells 0-5 /hpf (0-5) 01/02/19 23:45 Trace (NONE) 01/02/19 23:45 No culture indicated 01/02/19 23:45 Urine HCG, Qual Negative (NEGATIVE) 01/02/19 23:45 Digoxin 0.1 ng/mL (0.5-2.0) L 01/02/19 22:00 Positive (NEGATIVE) H 01/02/19 23:45 Negative (NEGATIVE) 01/02/19 23:45 Ur Phencyclidine Scrn Negative (NEGATIVE) 01/02/19 23:45 Urine Amphetamine Positive (NEGATIVE) H 01/02/19 23:45 U Benzodiazepines Scrn Negative (NEGATIVE) 01/02/19 23:45 Negative (NEGATIVE) 01/02/19 23:45 Negative (NEGATIVE) 01/02/19 23:45 Assessment/Plan - Narrative Narrative: Patient brought in for chest pain, shortness of breath, tachycardia, elevated d- dimer. Chest pain essentially resolved the moment to the ER, troponins negative x2. No acute EKG changes seen, patient does have history of cardiac disease so unsure what her baseline is. CTA ordered today to rule out pulmonary embolism though patient currently denies any symptoms and is wanting to leave. No signs or symptoms of pulmonary embolus at this time other than tachycardia which could be explained by amphetamine use. Patient has significant cardiac history, follows up with cardiology and electrophysiology at the [facility]. She has an appointment with them early next month, advised that she keep those appointments if she does leave AMA. Patient willing to wait for CTA to be completed which we will order now. Patient is a diabetic but her kidney function is within normal limits and she does not take metformin. Unsure as to why she is taking metformin tartrate once daily, but will switch it to twice daily to hopefully prevent her from having any more short runs of V. tach. Explained to her that recreational drug use like amphetamines will definitely make her cardiac history confusing and more difficult to treat and likely will cause worsening of the disease that she already dealing with. If her CT is normal we will discharge her home so she does not leave AMA. Again advised her to follow-up with her specialist soon and to return back to the hospital of her chest pain returns. - Assessment/Plan (1) Tachycardia Problem: Acute (2) D-dimer, elevated Problem: Acute (3) Shortness of breath Problem: Acute (4) Chest pain Problem: Acute Qualifiers: Chest pain type: other chest pain Qualified Code(s): R07.89 - Other chest pain; R07.8 - Other chest pain (5) Insulin dependent diabetes mellitus Problem: Acute (6) Methamphetamine use Problem: Acute
[2019-01-03] MEDS ORDERED: LOSARTAN POTASSIUM 50 MG TABLET PO SCH (10:45)
--- NOTE | 2019-01-03 11:08 | DS ---
(1) Tachycardia Problem: Acute (2) D-dimer, elevated Problem: Acute (3) Shortness of breath Problem: Acute (4) Chest pain Problem: Acute Qualifiers: Chest pain type: other chest pain Qualified Code(s): R07.89 - Other chest pain; R07.8 - Other chest pain (5) Insulin dependent diabetes mellitus Problem: Acute (6) Methamphetamine use Problem: Acute Description of Stay: We will discharge patient home today as she would leave AMA if asked to stay and wait for CTA which is ordered for tomorrow. Could not get approved today due to it being a holiday and she is under observation only. CTA chest ordered so that she can come in tomorrow morning and get it done. Patient upon discharge states she feels back to her normal self, she is asymptomatic and has no questions or concerns. The only changes to her chronic medications was to change her metop rolol tartrate to twice daily which might help with her tachycardia as well as the few short runs of V. tach that was seen on EKG. 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 Her vital signs been stable aside from her heart rate being elevated, upon discharge it was 110. Advised patient to stop using recreational drugs, especially meth amphetamine as this will cause of the issues that she was brought into the ER for and is likely the reason why she went to the ER. Advised the patient to follow-up with her primary care doctor within a week, return to the hospital of her chest pain returns. Procedures Performed: none Results and Findings: Lab Pending Results 01/02/19 22:00: WBC 9.4, RBC 4.79, Hgb 14.5, Hct 44.9, MCV 93.7, MCH 30.3, MCHC 32.3, RDW 14.4 H, Plt Count 306, MPV 9.1, Immature Gran % (Auto) 0.50 H, Immature Gran # (Auto) 0.05 H, Neutrophils % 50.0, Lymphocytes % 41.9, Monocytes % 5.6, Eosinophils % 1.5, Basophils % 0.5, Nucleated RBC % 0.0, Neutrophils # 4.7, Lymphocytes # 3.95 H, Monocytes # 0.5, Eosinophils # 0.1, Absolute Basophils 0.1 01/02/19 22:00: Sodium 139, Plasma Sodium 141, Potassium 4.1, Chloride 102, Carbon Dioxide 28.1, Anion Gap 13.0, BUN 12, Creatinine 0.90, Est GFR (Non-Af Amer) 72, BUN/Creatinine Ratio 13.3, Random Glucose 254 H, Calcium 9.1, Calcium Adj for Albumin 9.5, Total Bilirubin 0.4, AST 15, ALT 17 L, Alkaline Phosphatase 106, Troponin I 0.027, Total Protein 7.4, Albumin 3.1 L 01/02/19 22:00: B-Natriuretic Peptide 1471 H, Digoxin 0.1 L 01/02/19 22:00: D-Dimer 0.58 H 01/02/19 23:45: Urine HCG, Qual Negative 01/02/19 23:45: Urine Color Yellow, Urine Appearance Clear, Urine pH 7.0, Ur Specific [place] 1.020, Urine Protein Negative, Urine Glucose (UA) 100 H, Urine Ketones Negative, Urine Blood Negative, Urine Nitrate Negative, Urine Bilirubin Negative, Urine Urobilinogen Normal, Ur Leukocyte Esterase Negative, Urine RBC None seen, Urine WBC Trace H, Ur Epithelial Cells 0-5, Urine Bacteria Trace, Urine Culture Comments No culture indicated 01/02/19 23:45: Urine Opiates Screen Positive H, Barbiturate Screen Negative, Ur Phencyclidine Scrn Negative, Urine Amphetamine Positive H, U Benzodiazepines Scrn Negative, Urine Cocaine Screen Negative, Urine Marijuana (THC) Negative 01/03/19 05:05: Troponin I 0.031 Discharge Location: Home Disposition: Home self-care Condition: Stable Discharge Activity: Activity as tolerated Discharge Diet: Low fat/chol Referrals: Phil Pinto DO [Primary Care Provider] - One Week Prescriptions (Any new or edited meds): Metoprolol Tartrate [Lopressor] 50 mg PO BID #60 tab Complete Home Medications List: Complete Home Medication List: Spironolactone [Aldactone] 25 mg PO DAILY 06/22/12 Furosemide [Lasix] 160 mg PO DAILY 07/04/12 Carvedilol [Coreg] 37.5 mg PO BID 02/03/13 Digoxin [Lanoxin] 0.125 mg PO DAILY 02/03/13 Potassium Chloride 20 meq PO DAILY 02/03/13 Insulin Lispro [Humalog] 0 - 24 units SC AC #0 vial 02/04/13 Nitroglycerin [Nitrostat] 0.4 mg SL PRN PRN #0 btl 02/04/13 Insulin Glargine,Hum.rec.anlog [Lantus] 25 unit SQ DAILY 08/08/13 hydrALAZINE HCL [Apresoline] 75 mg PO TID 01/02/16 Ivabradine HCl [Corlanor] 5 mg PO BID 01/02/19 Aspirin [Aspirin EC] 81 mg PO DAILY 01/03/19 Metoprolol Tartrate [Lopressor] 50 mg PO BID #60 tab 01/03/19 Valsartan 80 mg PO DAILY 01/03/19 Amb Orders for Discharge: CTA Chest Time Frame: 1 Week, Location: Radiology
[2019-01-03 11:37] VITALS: BP 112/83
[2019-01-03] MEDS ORDERED: hydrALAZINE HCL 25 MG TABLET PO SCH (13:00)
[2019-01-03] MEDS ORDERED: CARVEDILOL 25 MG, CARVEDILOL 12.5 MG PO SCH ×2 (21:00)
[2019-01-03] MEDS ORDERED: CARVEDILOL 25 MG TABLET PO SCH (21:00)
[2019-01-04] MEDS ORDERED: SPIRONOLACTONE 25 MG TABLET PO SCH (09:00)
[2019-01-04] MEDS ORDERED: ASPIRIN 81 MG TABLET.DR PO SCH (09:00)
[2019-01-04] MEDS ORDERED: DIGOXIN 0.125 MG TABLET PO SCH (09:00)
[2019-01-04] MEDS ORDERED: FUROSEMIDE 80 MG TABLET PO SCH (09:00)
[2019-01-04] MEDS ORDERED: POTASSIUM CHLORIDE 20 MEQ TABLET.SA PO SCH (09:00)
== END 2019-01-03 11:45 | disposition home or self-care (01) ==
LOC: ER 21:25 → MS 21:25
PROVIDERS: ADMIT Family Medicine; ATTEND Family Medicine
DX: R00.0 Tachycardia, unspecified; R07.89 Other chest pain; F15.90 Other stimulant use, unspecified, uncomplicated; R06.02 Shortness of breath; E11.9 Type 2 diabetes mellitus without complications; R79.89 Other specified abnormal findings of blood chemistry
CPT/HCPCS: 36415; 71020; 71046; 80053; 80162; 80307; 81001; 83519; 83880; 84484; 84703; 85025; 85379; 93005; 96361; 96374; 96375; 99285; G0378

== ENCOUNTER 2019-08-10 20:28 | Inpatient (IN) ==
[2019-08-10] MEDS ORDERED: ONDANSETRON HCL/PF 2 MG/ML VIAL IV ONE ×2 (20:49→22:18)
[2019-08-10] MEDS ORDERED: NORMAL SALINE 1,000 ML IV ONE (20:54)
--- NOTE | 2019-08-10 21:03 | ERNOTE ---
Abdominal HPI - General Chief Complaint: Abdominal Pain Time Seen by Provider: 08/10/19 20:44 Source: patient Exam Limitations: no limitations - Immun/Allergies/Home Medications Immunizatons: IMMUNIZATION HX Immunizations Up to Date Yes History of Influenza Vaccine No Hx Pneumococcal Vaccination No Allergies/Adverse Reactions: Allergies codeine Allergy (Severe, Verified 08/10/19 20:37) Other penicillin G Allergy (Severe, Verified 08/10/19 20:37) Shortness of Breath ketorolac tromethamine [From Toradol] Allergy (Intermediate, Verified 08/10/19 20:37) Other cefaclor [From Ceclor] Allergy (Verified 08/10/19 20:37) Penicillins Allergy (Verified 08/10/19 20:37) sumatriptan [From Imitrex] Allergy (Verified 08/10/19 20:37) sumatriptan succinate [From Imitrex] Allergy (Verified 08/10/19 20:37) topiramate [From Topamax] Allergy (Verified 08/10/19 20:37) surgical tape Adverse Reaction (Severe, Uncoded 08/10/19 20:37) Other Home Medications: HOME MEDICATIONS Spironolactone [Aldactone] 25 mg PO DAILY 06/22/12 [Last Taken 07/04/12 10:00] Furosemide [Lasix] 160 mg PO DAILY 07/04/12 [Last Taken 07/04/12 10:00] Carvedilol [Coreg] 37.5 mg PO BID 02/03/13 [Last Taken Unknown] Digoxin [Lanoxin] 0.125 mg PO DAILY 02/03/13 [Last Taken Unknown] Potassium Chloride 20 meq PO DAILY 02/03/13 [Last Taken Unknown] Insulin Lispro [Humalog] 0 - 24 units SC AC #0 vial 02/04/13 [Last Taken Unknown] Nitroglycerin [Nitrostat] 0.4 mg SL PRN PRN #0 btl 02/04/13 [Last Taken Unknown] Insulin Glargine,Hum.rec.anlog [Lantus] 25 unit SQ DAILY 08/08/13 [Last Taken Unknown] hydrALAZINE HCL [Apresoline] 75 mg PO TID 01/02/16 [Last Taken Unknown] Ivabradine HCl [Corlanor] 5 mg PO BID 01/02/19 [Last Taken Unknown] Aspirin [Aspirin EC] 81 mg PO DAILY 01/03/19 [Last Taken Unknown] Metoprolol Tartrate [Lopressor] 50 mg PO BID #60 tab 01/03/19 [Last Taken Unknown] Valsartan 80 mg PO DAILY 01/03/19 [Last Taken Unknown] - History of Present Illness Narrative: Patient states she had some mild stomach pain yesterday and then throughout the day today her pain got worse. Over the past 2-1/2 hours it has been steadily increasing with waves of pain and dry heaves. Timing: getting worse Quality: moderate, severe, cramping Activities at Onset: none Modifying Factors - (Worsens): Present: vomiting Associated Symptoms: Absent: back pain Prior Abdominal Problems: Present: similar symptoms - A month ago and was diagnosed with gastritis Prior Treatment: Present: recently seen, treated by physician Review of Systems - Review of Systems Constitutional: Absent: recent illness, fever, chills Respiratory: Absent: shortness of breath, cough Cardiology: Absent: chest pain Gastrointestinal/Abdominal: Present: See HPI, nausea Genitourinary: Absent: frequency, dysuria Musculoskeletal: Absent: back pain Skin: Absent: rash Neurological: Absent: dizziness/light-headedness Endocrine: Absent: excessive sweating Medical History (Last Reviewed 08/10/19 @ 21:01 by Justin Claire DO) CHF (congestive heart failure) (Acute) With Left Ventricular changes. Sees Dr. West [facility] Adrenal tumor Cardiomyopathy Sees Dr. West Started Entresto in December 2017 Diabetic acidosis, type II Hx of migraines Insomnia Irregular heart beat Nervousness uterine tumor Surgical History: Surgical History (Last Reviewed 08/10/19 @ 21:01 by Justin Claire DO) History of tonsillectomy (Acute) This was done twice once in 1995 Grew back and had done again 2002 H/O dilation and curettage Hx of tubal ligation ICD (implantable cardioverter-defibrillator), biventricular, in situ Family History: Family History (Last Reviewed 08/10/19 @ 21:01 by Justin Claire DO) Father HX: breast cancer Hx of ovarian cancer Hx of colon cancer, stage IV No relevant family history Mother HX: breast cancer Hx of ovarian cancer Brother Hx of skin cancer, basal cell Uncle Brain cancer Lung cancer Social History: (This Medical Record has been edited. Action required.) Tobacco: Smoking Status: Current every day smoker tobacco type: cigarettes Smoking cigarettes per day: 6 Alcohol: alcohol intake: never Substance Use: substance use type: does not use Physical Exam - Physical Exam General Appearance: Present: wd/wn, alert, mild distress, anxious Head Exam: Present: normal inspection, no evidence of injury Neck: Present: normal inspection, nontender, supple Respiratory: Present: no respiratory distress, normal breath sounds Cardiovascular/Chest: Present: regular rate, rhythm, no murmur Gastrointestinal/Abdominal: Present: normal bowel sounds, nondistended, tenderness - Moderate to severe bilateral upper quadrants, guarding, rebound - Upper quadrants usually right upper quadrant Back Exam: Present: normal inspection, normal range of motion Extremity Exam: Present: normal inspection, normal range of motion, no edema Neurological Exam: Present: alert, oriented, no motor/sensory deficits Skin Exam: Present: normal color, warm/dry Lymphatic Exam: Present: no adenopathy Progress - Results and Orders Patient's Lab Results:: I have reviewed the patient's lab results. Results and Orders: Laboratory Tests 08/10/19 08/10/19 08/10/19 21:04 21:04 22:35 WBC 11.8 H Hgb 14.0 Hct 42.1 Plt Count 272 Sodium 132 Potassium 4.1 Chloride 99 Carbon Dioxide 27.0 BUN 16 Creatinine 0.94 Random Glucose 324 H Calcium 8.5 Total Bilirubin 0.7 AST 12 ALT 16 L Alkaline Phosphatase 110 Amylase 39 Lipase 80 Urine Color Yellow Urine Appearance Slightly cloudy Urine pH 5.5 Ur Specific [place] 1.025 Urine Protein 100 H Urine Glucose (UA) 100 H Urine Ketones Negative Urine Blood Negative Urine Nitrate Positive H Urine Bilirubin Negative Prot Sulfosalicylic Acd 4+ H Urine Urobilinogen Normal Ur Leukocyte Esterase 100 H Urine RBC None seen Urine WBC 25-50 H Ur Epithelial Cells 0-5 Urine Bacteria 2+ H Urine Culture Comments Culture to follow - Vital Signs Patient's Vital Signs:: I have reviewed the patient's vital signs. Vital Signs: Vital Signs 08/10/19 20:33 Temperature 36.1 C Pulse Rate 87 Respiratory Rate 20 Blood Pressure 115/73 O2 Sat by Pulse Oximetry 100 - EKG EKG #1 EKG: NSR, nonspecific ST T wave changes EKG read: Interp. by me - X-Ray X-Ray #1 X-Ray: chest Interpretation: Interp. by me X-ray Comments: Post NG placement. The tip of the NG tube appears to be in the stomach. - CT/Ultrasound CT/Ultrasound Narrative: CT abdomen pelvis with IV and oral contrast. Distal small bowel obstruction Indeterminate appearance of the uterus could be due to fibroid or endometrial mass recommend ultrasound. - Progress/Reassessment Chief Complaint: Abdominal Pain Progress:: Improved Progress Note-Subjective: 08/11/19 00:[address] Gordon and she agrees with admit to medicine and consult her 08/11/19 00:[address] Alejandro she agrees with admit 08/11/19 01:24 I added Cipro 200 mg IV twice daily for UTI since she will be n.p.o. Departure Clinical Impression: Small bowel obstruction UTI (urinary tract infection) Qualifiers: Urinary tract infection type: acute cystitis Hematuria presence: without hematuria Qualified Code(s): N30.00 - Acute cystitis without hematuria - Departure Disposition: Still a patient Condition: Stable
[2019-08-10 21:10] LABS: Hematocrit 42.1 % (37.0-47.0); Mean Corpuscular Hemoglobin 31.3 pg (27-31); Mean Corpuscular Hgb Conc 33.3 g/dl (32-36); Mean Platelet Volume 8.9 fl (8-12.5); Neutrophil # 7.8 K/mm3 (1.3-6.0); Platelet Count 272 K/mm3 (150-450); Red Blood Count 4.48 M/mm3 (4.2-5.4); Red Cell Distribution Width 16.5 % (11.5-14.0); White Blood Count 11.8 K/mm3 (4.0-10.5)
[2019-08-10] MEDS ORDERED: NALBUPHINE HCL 10 MG/ML AMPUL IV ONE (21:17)
[2019-08-10 21:18] LABS: Albumin * 3.1 gm/dl (3.4-5.0); Anion Gap 10.1 mmol/L (6.8-13.8); Bilirubin, Total 0.7 mg/dL (0.0-1.1); Ca. Corrected For Albumin 8.9 mg/dL (8.4-10.2); Calcium * 8.5 mg/dL (7.9-10.9); Potassium 4.1 mmol/L (3.4-4.6); Total Protein 7.7 gm/dL (6.2-8.2)
[2019-08-10] MEDS ORDERED: DIATRIZOATE MEGLUMINE, SODIUM 30 ML BTL PO ONE (21:21)
[2019-08-10 22:46] LABS: Urine Appearance Slightly Cloudy (CLEAR); Urine Color Yellow
[2019-08-10 22:47] LABS: Urine Bilirubin Negative (NEGATIVE); Urine Blood Negative /ul (NEGATIVE); Urine Ketone Negative (NEGATIVE); Urine Protein 100 mg/dL (NEGATIVE); Urine Specific Gravity 1.025 SP.GR. (1.005-1.010); Urine Urobilinogen Normal (NORMAL); Urine pH 5.5 pH (5.0-7.0)
[2019-08-10 22:48] LABS: Urine Bacteria 2+; Urine Nitrite Positive (NEGATIVE); Urine RBC None Seen /hpf (0-5); Urine WBC 25-50 /hpf (0-5)
[2019-08-10] MEDS ORDERED: MORPHINE SULFATE 2 MG/ML DISP.SYRIN IV ONE (23:31)
[2019-08-11] MEDS ORDERED: MORPHINE SULFATE 2 MG/ML DISP.SYRIN IV ONE (00:53)
[2019-08-11] MEDS ORDERED: MORPHINE SULFATE 2 MG/ML DISP.SYRIN ONE (00:54)
[2019-08-11] MEDS ORDERED: ONDANSETRON HCL/PF 2 MG/ML VIAL IV PRN (01:19)
[2019-08-11] MEDS ORDERED: TETRACAINE/BENZOCAINE/BUTAMBEN 56 SPRAY BTL TP ONE (01:29)
[2019-08-11] MEDS: TETRACAINE/BENZOCAINE/BUTAMBEN 56 SPRAY BTL TP ONE ×2 (01:35→10:41)
[2019-08-11] MEDS: NORMAL SALINE 1,000 ML IV PRN ×3 (02:52→21:00)
[2019-08-11] MEDS: CIPROFLOXACIN IN 5 % DEXTROSE 200 MG/100 ML BAG IV SCH ×2 (02:52→14:05)
[2019-08-11] MEDS ORDERED: FLU VACC QS2019-20(6MOS UP)/PF 60 MCG/0.5 ML SYRINGE IM ONE (09:00)
--- NOTE | 2019-08-11 09:27 | CONS ---
- Reason for consultation (1) Small bowel obstruction Date of Service: 08/11/19 HPI - General Source: patient Exam Limitations: no limitations - History of Present Illness Initial Comments: Anne is a pleasant 44-year-old female who developed abdominal pain yesterday. She came to the emergency room and was found to have a UTI. She had a CT scan which showed small bowel obstruction. An NG tube was placed. She is feeling better this morning. She just had a very large bowel movement and is feeling much better. She has a surgical history of a tubal ligation. Timing/Duration: 24 hours Severity: moderate Modifying Factors - (Worsens): Reports: eating Modifying Factors - (Improves): Reports: other - Bowel movement improved symptoms Associated Symptoms: denies symptoms Allergies/Adverse Reactions: Allergies codeine Allergy (Severe, Verified 08/10/19 20:37) Other penicillin G Allergy (Severe, Verified 08/10/19 20:37) Shortness of Breath ketorolac tromethamine [From Toradol] Allergy (Intermediate, Verified 08/10/19 20:37) Other cefaclor [From Ceclor] Allergy (Verified 08/10/19 20:37) Penicillins Allergy (Verified 08/10/19 20:37) sumatriptan [From Imitrex] Allergy (Verified 08/10/19 20:37) sumatriptan succinate [From Imitrex] Allergy (Verified 08/10/19 20:37) topiramate [From Topamax] Allergy (Verified 08/10/19 20:37) surgical tape Adverse Reaction (Severe, Uncoded 08/10/19 20:37) Other Home Medications: Home Medications Medication Instructions Recorded Last Taken Spironolactone [Aldactone] 25 mg PO DAILY 06/22/12 07/04/12 10:00 Furosemide [Lasix] 160 mg PO DAILY 07/04/12 07/04/12 10:00 Carvedilol [Coreg] 37.5 mg PO BID 02/03/13 Unknown Digoxin [Lanoxin] 0.125 mg PO DAILY 02/03/13 Unknown Potassium Chloride 20 meq PO DAILY 02/03/13 Unknown Insulin Lispro [Humalog] 0 - 24 units SC AC #0 vial 02/04/13 Unknown Nitroglycerin [Nitrostat] 0.4 mg SL PRN PRN #0 btl 02/04/13 Unknown Insulin Glargine,Hum.rec.anlog 20 unit SQ QAM 08/08/13 Unknown [Lantus] hydrALAZINE HCL [Apresoline] 75 mg PO TID 01/02/16 Unknown Ivabradine HCl [Corlanor] 5 mg PO BID 01/02/19 Unknown Aspirin [Aspirin EC] 81 mg PO DAILY 01/03/19 Unknown Metoprolol Tartrate [Lopressor] 50 mg PO BID #60 tab 01/03/19 Unknown Valsartan 80 mg PO DAILY 01/03/19 Unknown Procedures Application of splint (11/06/11) Aspiration curettage following delivery or (07/04/07) Medications - Medications Current Medications: Current Medications Sodium Chloride (Sodium Chloride 0.9%) 1,000 mls @ 125 mls/hr IV .Q8H PRN PRN Reason: HYDRATION Stop: 09/10/19 01:23 Last Admin: 08/11/19 02:52 Dose: 125 mls/hr Documented by: Ciprofloxacin/Dextrose (Cipro) 200 mg in 100 mls @ 100 mls/hr IV Q12H [facility]; Protocol Stop: 09/10/19 01:31 Last Infusion: 08/11/19 03:55 Dose: Infused Documented by: Review of Systems - Review of Systems Generalized/Overall Review: Present: Malaise EENTM: Present: No Symptoms Reported Respiratory: Present: No Symptoms Reported Cardiac: Present: No Symptoms Reported Abdominal: Present: Nausea, Abdominal Pain, Constipation Genitourinary: Present: No Symptoms Reported Musculoskeletal: Present: No Symptoms Reported Neurological: Present: No Symptoms Reported Skin: Present: No Symptoms Reported Endocrine: Present: No Symptoms Reported Physical Examination - Exam Vital Signs: Vital Signs - Last Taken Temp 37.1 C 08/11/19 07:30 Pulse 85 08/11/19 07:30 Resp 20 08/11/19 07:30 BP 99/68 08/11/19 07:30 Pulse Ox 100 08/11/19 07:30 O2 Oxygen Delivery Method Room Air Constitutional: Present: Alert, Oriented x3, Cooperative ENT Exam: Present: hearing grossly normal Eye Exam: bilateral eye: normal inspection Neck: Present: supple Breasts: Present: Exam deferred Respiratory: Present: lungs clear, normal breath sounds, no respiratory distress Cardiovascular/Chest: Present: regular rate, rhythm Abdomen: Present: soft, nondistended, obese. Absent: rigidity, rebound tenderness /Rectal: Present: Exam deferred Extremity: Present: normal range of motion Skin Exam: Present: normal color Neurologic: Present: fixing carpenter II-XII nml as tested Appearance: Present: appropriate appearance Eye contact: Present: cooperative Thoughts: Present: normal thought pattern - Results and Findings: Lab/Microbiology results last 24 hrs: Abnormal/Pending Laboratory Last 24 HRS 08/10/19 08/10/19 08/10/19 22:35 21:04 21:04 WBC 11.8 H MCH 31.3 H RDW 16.5 H Immature Gran % (Auto) 0.50 H Immature Gran # (Auto) 0.06 H Neutrophils # 7.8 H Random Glucose 324 H ALT 16 L Albumin 3.1 L Urine Protein 100 H Urine Glucose (UA) 100 H Urine Nitrate Positive H Prot Sulfosalicylic Acd 4+ H Ur Leukocyte Esterase 100 H Urine WBC 25-50 H Urine Bacteria 2+ H - Assessments/Findings (1) Small bowel obstruction Problem: Acute Plan - Plan Plan: We will plan to clamp NG tube for 6 hours and remove if no nausea or vomiting. Start clear liquids. Advance diet as tolerated.
[2019-08-11] MEDS ORDERED: ACETAMINOPHEN 325 MG TABLET PO PRN (09:52)
[2019-08-11] MEDS ORDERED: NITROGLYCERIN 0.4 MG/TAB BTL SL PRN (09:53)
[2019-08-11] MEDS ORDERED: CARVEDILOL 25 MG TABLET PO SCH (10:00)
--- NOTE | 2019-08-11 10:15 | HP ---
Chief Complaint - Chief Complaint Date of Service: 08/11/19 Time of Service: 10:04 Chief Complaint: I have diffuse abdominal pain for 2 days History of Present Illness: 44-year-old female with past medical history of recurrent gastritis, type 2 insulin-dependent diabetes, morbid obesity, cardiomyopathy, pacemaker and defibrillator dependent, migraine headaches, constipation, insomnia, congestive heart failure, active smoker/nicotine dependence was evaluated in the ER due to diffuse abdominal pain that later focalized to the epigastric and right and lower quadrants that started 2 days ago in her home. Patient reports that the pain started unprovoked first affecting her whole abdomen but then yesterday it worsened and became more intense in the epigastric and upper quadrants. She denies any fever or chills but says she had shortness of breath due to the waves of pain. Patient denies any vomiting but says she was nauseous. While in the ER she underwent abdominal CT with contrast that demonstrated a small bowel obstruction, therefore decision to admit the patient for consultation with the general surgeon was made. Patient was also discovered to have a UTI on urinalysis, urine culture has been sent to lab and patient was started on IV antibiotics. Nasogastric tube was placed while the patient was in the ER and has now been ordered to be clamped to make an attempt to remove it. Medical History (Last Reviewed 08/10/19 @ 21:01 by Justin Claire DO) CHF (congestive heart failure) (Acute) With Left Ventricular changes. Sees Dr. West [facility] Adrenal tumor Cardiomyopathy Sees Dr. West Started Entresto in December 2017 Diabetic acidosis, type II Hx of migraines Insomnia Irregular heart beat Nervousness uterine tumor Surgical History: Surgical History (Last Reviewed 08/10/19 @ 21:01 by Justin Claire DO) History of tonsillectomy (Acute) This was done twice once in 1995 Grew back and had done again 2002 H/O dilation and curettage Hx of tubal ligation ICD (implantable cardioverter-defibrillator), biventricular, in situ Family History: Family History (Last Reviewed 08/10/19 @ 21:01 by Justin Claire DO) Father HX: breast cancer Hx of ovarian cancer Hx of colon cancer, stage IV No relevant family history Mother HX: breast cancer Hx of ovarian cancer Brother Hx of skin cancer, basal cell Uncle Brain cancer Lung cancer Social History: (This Medical Record has been edited. Action required.) Tobacco: Smoking Status: Current every day smoker tobacco type: cigarettes Smoking cigarettes per day: 6 Alcohol: alcohol intake: never Substance Use: substance use type: does not use Peds Patient Hx - Developmental: No Pertinent Hx Peds Patient Hx - Medical: No Pertinent Hx Peds Patient Hx - Cardiac/Respiratory: No Pertinent Hx Peds Patient Hx - Surgical: No Surgical History Patient History - Cancer: No Hx of Cancer, Non Hodgkins Lymphoma Review Of Systems (GEN) - Review of Systems Generalized/Overall Review: Present: No Symptoms Reported EENTM: Present: No Symptoms Reported Respiratory: Present: No Symptoms Reported Cardiac: Present: No Symptoms Reported Abdominal: Present: Nausea, Abdominal Pain Genitourinary: Present: No Symptoms Reported Musculoskeletal: Present: No Symptoms Reported Neurological: Present: No Symptoms Reported Skin: Present: No Symptoms Reported Endocrine: Present: No Symptoms Reported Immunizations: IMMUNIZATION HX Immunizations Up to Date Yes History of Influenza Vaccine No Hx Pneumococcal Vaccination No Allergies/Adverse Reactions: Allergies Allergy/AdvReac Type Severity Reaction Status Date / Time codeine Allergy Severe Other Verified 08/10/19 20:37 penicillin G Allergy Severe Shortness Verified 08/10/19 20:37 of Breath ketorolac tromethamine Allergy Intermediate Other Verified 08/10/19 20:37 [From Toradol] cefaclor [From Ceclor] Allergy Verified 08/10/19 20:37 Penicillins Allergy Verified 08/10/19 20:37 sumatriptan [From Imitrex] Allergy Verified 08/10/19 20:37 sumatriptan succinate Allergy Verified 08/10/19 20:37 [From Imitrex] topiramate [From Topamax] Allergy Verified 08/10/19 20:37 surgical tape AdvReac Severe Other Uncoded 08/10/19 20:37 Home Medications: HOME MEDICATIONS Spironolactone [Aldactone] 25 mg PO DAILY 06/22/12 [Last Taken 07/04/12 10:00] Furosemide [Lasix] 160 mg PO DAILY 07/04/12 [Last Taken 07/04/12 10:00] Carvedilol [Coreg] 37.5 mg PO BID 02/03/13 [Last Taken Unknown] Digoxin [Lanoxin] 0.125 mg PO DAILY 06/27/13 [Last Taken Unknown] Potassium Chloride 20 meq PO DAILY 02/03/13 [Last Taken Unknown] Insulin Lispro [Humalog] 0 - 24 units SC AC #0 vial 02/04/13 [Last Taken Unknown] Nitroglycerin [Nitrostat] 0.4 mg SL PRN PRN #0 btl 02/04/13 [Last Taken Unknown] Insulin Glargine,Hum.rec.anlog [Lantus] 20 unit SQ QAM 08/08/13 [Last Taken Unknown] hydrALAZINE HCL [Apresoline] 75 mg PO TID 01/02/16 [Last Taken Unknown] Ivabradine HCl [Corlanor] 5 mg PO BID 01/02/19 [Last Taken Unknown] Aspirin [Aspirin EC] 81 mg PO DAILY 01/03/19 [Last Taken Unknown] Metoprolol Tartrate [Lopressor] 50 mg PO BID #60 tab 01/03/19 [Last Taken Unknown] Valsartan 80 mg PO DAILY 01/03/19 [Last Taken Unknown] Exam - Exam Vital Signs: Vital Signs - Last Taken Temp 37.1 C 08/11/19 07:30 Pulse 85 08/11/19 07:30 Resp 20 08/11/19 07:30 BP 99/68 08/11/19 07:30 Pulse Ox 100 08/11/19 07:30 Constitutional: Present: Alert, Oriented x3, Cooperative, Well developed, Well nourished, No distress, Morbidly obese ENT Exam: Present: hearing grossly normal, pharynx normal, TMs normal, other - Nasogastric tube in place Eye Exam: bilateral eye: normal inspection, PERRL, EOMI Neck: Present: non-tender, full range of motion, supple, normal inspection, trachea midline Back Exam: Present: normal inspection, no CVA tenderness, no vertebral tenderness Breasts: Present: Exam deferred Respiratory: Present: chest non-tender, lungs clear, normal breath sounds, no re spiratory distress, no accessory muscle use Cardiovascular/Chest: Present: normal peripheral pulses, regular rate, rhythm, no chest tenderness, no edema, no gallop, no JVD, no murmur, no rub Peripheral Pulses: carotid (R): 3+, carotid (L): 3+, femoral (R): 3+, femoral (L): 3+, dorsalis-pedis (R): 3+, dorsalis-pedis (L): 3+ Abdomen: Present: Normal bowel sounds, soft, nondistended, no hepatospenomegaly, no masses, obese, tender - Upper abdominal tenderness specifically in epigastric and upper quadrants, rebound tenderness /Rectal: Present: Exam deferred Extremity: Present: normal range of motion, non-tender, normal inspection, no pedal edema, no calf tenderness, normal capillary refill, pelvis stable Skin Exam: Present: normal color, warm/dry, no cyanosis Lymphatic: Present: no adenopathy Neurologic: Present: refrigeration operator II-XII nml as tested, normal cerebellar test, no motor/sensory deficits, alert, normal mood/affect, oriented x 3 Appearance: Present: appropriate appearance, appropriate insight, neat, no memory impairment Eye contact: Present: cooperative, good eye contact, normal speech Thoughts: Present: normal thought pattern, no apparent hallucination Diagnostic Studies: Abnormal Lab Results 08/10/19 08/10/19 08/10/19 Range/Units 21:04 21:04 22:35 WBC 11.8 H (4.0-10.5) K/mm3 MCH 31.3 H (27-31) pg RDW 16.5 H (11.5-14.0) % Immature Gran % (Auto) 0.50 H (0.001-0.429) % Immature Gran # (Auto) 0.06 H (0.000-0.0310) K/mm3 Neutrophils # 7.8 H (1.3-6.0) K/mm3 Random Glucose 324 H (70-110) mg/dL ALT 16 L (19-67) U/L Albumin 3.1 L (3.4-5.0) gm/dl Urine Protein 100 H (NEGATIVE) mg/dL Urine Glucose (UA) 100 H (NEGATIVE) mg/dL Urine Nitrate Positive H (NEGATIVE) Prot Sulfosalicylic Acd 4+ H (0) mg/dL Ur Leukocyte Esterase 100 H (NEGATIVE) /ul Urine WBC 25-50 H (0-5) /hpf Urine Bacteria 2+ H (NONE) Laboratory Results WBC 11.8 K/mm3 (4.0-10.5) H 08/10/19 21:04 RBC 4.48 M/mm3 (4.2-5.4) 08/10/19 21:04 Hgb 14.0 gm/dL (12.5-16.0) 08/10/19 21:04 Hct 42.1 % (37.0-47.0) 08/10/19 21:04 MCV 94.0 fl (78-100) 08/10/19 21:04 MCH 31.3 pg (27-31) H 08/10/19 21:04 MCHC 33.3 g/dl (32-36) 08/10/19 21:04 RDW 16.5 % (11.5-14.0) H 08/10/19 21:04 Plt Count 272 K/mm3 (150-450) 08/10/19 21:04 MPV 8.9 fl (8-12.5) 08/10/19 21:04 Immature Gran % (Auto) 0.50 % (0.001-0.429) H 08/10/19 21:04 Immature Gran # (Auto) 0.06 K/mm3 (0.000-0.0310) H 08/10/19 21:04 Neutrophils % 66.0 % (42-75.0) 08/10/19 21:04 Lymphocytes % 26.3 % (20-51) 08/10/19 21:04 Monocytes % 6.0 % (0.0-9) 08/10/19 21:04 Eosinophils % 0.9 % (0.0-3.0) 08/10/19 21:04 Basophils % 0.3 % (0.0-1.0) 08/10/19 21:04 Nucleated RBC % 0.0 k/mm3 (0-1) 08/10/19 21:04 Neutrophils # 7.8 K/mm3 (1.3-6.0) H 08/10/19 21:04 Lymphocytes # 3.09 k/mm3 (1.5-3.5) 08/10/19 21:04 Monocytes # 0.7 k/mm3 (0.0-1.0) 08/10/19 21:04 Eosinophils # 0.1 k/mm3 (0.0-0.7) 08/10/19 21:04 Absolute Basophils 0.0 k/mm3 (0.0-0.1) 08/10/19 21:04 Sodium 132 mmol/L (132-142) 08/10/19 21:04 Plasma Sodium 136 mmol/L (130-142) 08/10/19 21:04 Potassium 4.1 mmol/L (3.4-4.6) 08/10/19 21:04 Chloride 99 mmol/L (97-106) 08/10/19 21:04 Carbon Dioxide 27.0 mmol/L (24-32.6) 08/10/19 21:04 Anion Gap 10.1 mmol/L (6.8-13.8) 08/10/19 21:04 BUN 16 mg/dL (3-23) 08/10/19 21:04 Creatinine 0.94 mg/dL (0.4-1.4) 08/10/19 21:04 Est GFR (Non-Af Amer) 68 mL/min (60-130) 08/10/19 21:04 BUN/Creatinine Ratio 17.0 (9.0-21.6) 08/10/19 21:04 Random Glucose 324 mg/dL (70-110) H 08/10/19 21:04 Calcium 8.5 mg/dL (7.9-10.9) 08/10/19 21:04 Calcium Adj for Albumin 8.9 mg/dL (8.4-10.2) 08/10/19 21:04 Total Bilirubin 0.7 mg/dL (0.0-1.1) 08/10/19 21:04 AST 12 U/L (0-48) 08/10/19 21:04 ALT 16 U/L (19-67) L 08/10/19 21:04 Alkaline Phosphatase 110 U/L (50-170) 08/10/19 21:04 Total Protein 7.7 gm/dL (6.2-8.2) 08/10/19 21:04 Albumin 3.1 gm/dl (3.4-5.0) L 08/10/19 21:04 Amylase 39 U/L (25-115) 08/10/19 21:04 Lipase 80 U/L (73-393) 08/10/19 21:04 Urine Color Yellow 08/10/19 22:35 Urine Appearance Slightly cloudy (CLEAR) 08/10/19 22:35 Urine pH 5.5 pH (5.0-7.0) 08/10/19 22:35 Ur Specific [place] 1.025 SP.GR. (1.005-1.010) 08/10/19 22:35 Urine Protein 100 mg/dL (NEGATIVE) H 08/10/19 22:35 Urine Glucose (UA) 100 mg/dL (NEGATIVE) H 08/10/19 22:35 Urine Ketones Negative mg/dL (NEGATIVE) 08/10/19 22:35 Urine Blood Negative /ul (NEGATIVE) 08/10/19 22:35 Urine Nitrate Positive (NEGATIVE) H 08/10/19 22:35 Urine Bilirubin Negative mg/dl (NEGATIVE) 08/10/19 22:35 Prot Sulfosalicylic Acd 4+ mg/dL (0) H 08/10/19 22:35 Urine Urobilinogen Normal EU/dl (NORMAL) 08/10/19 22:35 Ur Leukocyte Esterase 100 /ul (NEGATIVE) H 08/10/19 22:35 Urine RBC None seen /hpf (0-5) 08/10/19 22:35 Urine WBC 25-50 /hpf (0-5) H 08/10/19 22:35 Ur Epithelial Cells 0-5 /hpf (0-5) 08/10/19 22:35 Urine Bacteria 2+ (NONE) H 08/10/19 22:35 Urine Culture Comments Culture to follow 08/10/19 22:35 Assessment/Plan - Narrative Narrative: Patient was evaluated and medical chart was reviewed and decision to admit to to MedSurg [facility] was made. Patient reports feeling better than before but still has significant abdominal tenderness to palpation specifically in her upper abdomen. She was evaluated by the general surgeon who decided to clamp nasogastric tube and will eventually make an attempt to remove it. Patient had multiple large bowel movements throughout the night, this is likely due to the contrast she was given for the abdominal CT. Since having these bowel movement she reports improvement in her pain and almost complete resolution of her distention. Clear liquid diet has been started, will see how she tolerates and follow-up with further recommendations from surgery. In the meantime all the patient's routine medications have been reconciled and will be administered during the hospitali zation. She maintained stable vitals and is not presenting any new symptoms at this time. We will continue treating her for her UTI with antibiotics and follow-up with culture results. - Assessment/Plan (1) Small bowel obstruction Problem: Acute (2) Abdominal pain Problem: Acute Qualifiers: Abdominal location: generalized Qualified Code(s): R10.84 - Generalized abdominal pain (3) CHF (congestive heart failure) Problem: Acute (4) UTI (urinary tract infection) Problem: Acute
[2019-08-11] MEDS: SPIRONOLACTONE 25 MG TABLET PO SCH (10:42)
[2019-08-11] MEDS: POTASSIUM CHLORIDE 20 MEQ TABLET.SA PO SCH (10:42)
[2019-08-11] MEDS: ASPIRIN 81 MG TABLET.DR PO SCH (10:42)
[2019-08-11] MEDS: DIGOXIN 0.125 MG TABLET PO SCH (10:43)
[2019-08-11] MEDS: FUROSEMIDE 80 MG TABLET PO SCH (10:43)
[2019-08-11] MEDS: METOPROLOL TARTRATE 50 MG TABLET PO SCH ×2 (10:45→20:52)
[2019-08-11] MEDS: FAMOTIDINE 20 MG in DEXTROSE 5 % IN WATER 100 ML IV SCH ×4 (10:45→21:00)
[2019-08-11] MEDS: LOSARTAN POTASSIUM 50 MG TABLET PO SCH (10:46)
[2019-08-11] MEDS: CARVEDILOL 25 MG, CARVEDILOL 12.5 MG PO SCH ×4 (10:46→20:52)
[2019-08-11] MEDS: NALBUPHINE HCL 10 MG/ML AMPUL IV PRN ×2 (11:01→21:01)
[2019-08-11] MEDS: Ivabradine Hcl [Corlanor] 5 MG PO SCH ×2 (12:04→20:52)
[2019-08-11] MEDS: INSULIN LISPRO 100 UNITS/ML VIAL SC SCH ×2 (12:11→17:33)
[2019-08-11] MEDS ORDERED: hydrALAZINE HCL 25 MG TABLET PO SCH (13:00)
[2019-08-12] MEDS: CIPROFLOXACIN IN 5 % DEXTROSE 200 MG/100 ML BAG IV SCH (01:29)
[2019-08-12] MEDS: NORMAL SALINE 1,000 ML IV PRN (06:25)
[2019-08-12 06:45] LABS: Hematocrit 39.8 % (37.0-47.0); Hemoglobin 12.8 gm/dL (12.5-16.0); Mean Cell Volume 96.8 fl (78-100); Mean Corpuscular Hemoglobin 31.1 pg (27-31); Mean Corpuscular Hgb Conc 32.2 g/dl (32-36); Mean Platelet Volume 8.7 fl (8-12.5); Neutrophil # 2.9 K/mm3 (1.3-6.0); Neutrophil % 48.4 % (42-75.0); Platelet Count 233 K/mm3 (150-450); Red Blood Count 4.11 M/mm3 (4.2-5.4); Red Cell Distribution Width 16.5 % (11.5-14.0)
[2019-08-12 06:51] LABS: Albumin * 2.4 gm/dl (3.4-5.0); Anion Gap 12.7 mmol/L (6.8-13.8); BUN/Creatinine Ratio 18.5 (9.0-21.6); Bilirubin, Total 0.9 mg/dL (0.0-1.1); Ca. Corrected For Albumin 8.3 mg/dL (8.4-10.2); Calcium * 7.3 mg/dL (7.9-10.9); Carbon Dioxide 24.2 mmol/L (24-32.6); Potassium 3.9 mmol/L (3.4-4.6); Total Protein 6.4 gm/dL (6.2-8.2)
[2019-08-12] MEDS: INSULIN LISPRO 100 UNITS/ML VIAL SC SCH ×2 (08:05→11:51)
[2019-08-12] MEDS ORDERED: INSULIN GLARGINE,HUM.REC.ANLOG 100 UNITS/ML VIAL SC SCH (09:00)
--- NOTE | 2019-08-12 09:17 | DS ---
(1) Small bowel obstruction Problem: Resolved (2) Abdominal pain Problem: Resolved Qualifiers: Abdominal location: generalized Qualified Code(s): R10.84 - Generalized abdominal pain (3) CHF (congestive heart failure) Problem: Chronic (4) UTI (urinary tract infection) Problem: Acute Date of Discharge:: 08/12/19 Hospital Course: 44-year-old female admitted for a small bowel obstruction was evaluated at bedside and was found to be afebrile and in no acute distress. Patient has shown significant clinical improvement and reports resolution of abdominal pain, although she still has residual tenderness to deep palpation of her epigastric region. It was explained to her that she will be sore for a couple of days and we expect that. She reports having several bowel movements last night before bed and has passed gas. Patient was evaluated at bedside by the surgeon this morning, who approves removal of a nasogastric tube. She was started on oral intake yesterday which she tolerated without any issues. The only issue the patient is that she became hypotensive yesterday afternoon so her BP medications were held. Since then her blood pressure has improved, so it was explained to her that once she is home she needs to monitor blood pressure and to take her medication as prescribed. It was also explained to patient it is important that she follow-up with her PCP in the next 1 to 2 weeks. Procedures Performed: see notes below - Nasogastric tube placement Results and Findings: Pending Mircobiology Results 08/10/19 22:30 Urine,Clean Catch Urine Culture - Preliminary Gram Negative Bacilli Beta Hemolytic Strep Lab Pending Results 08/10/19 21:04: WBC 11.8 H, RBC 4.48, Hgb 14.0, Hct 42.1, MCV 94.0, MCH 31.3 H, MCHC 33.3, RDW 16.5 H, Plt Count 272, MPV 8.9, Immature Gran % (Auto) 0.50 H, Immature Gran # (Auto) 0.06 H, Neutrophils % 66.0, Lymphocytes % 26.3, Monocytes % 6.0, Eosinophils % 0.9, Basophils % 0.3, Nucleated RBC % 0.0, Neutrophils # 7.8 H, Lymphocytes # 3.09, Monocytes # 0.7, Eosinophils # 0.1, Absolute Basophils 0.0 08/10/19 21:04: Sodium 132, Plasma Sodium 136, Potassium 4.1, Chloride 99, Carbon Dioxide 27.0, Anion Gap 10.1, BUN 16, Creatinine 0.94, Est GFR (Non-Af Amer) 68, BUN/Creatinine Ratio 17.0, Random Glucose 324 H, Calcium 8.5, Calcium Adj for Albumin 8.9, Total Bilirubin 0.7, AST 12, ALT 16 L, Alkaline Phosphatase 110, Total Protein 7.7, Albumin 3.1 L, Amylase 39, Lipase 80 08/10/19 22:35: Urine Color Yellow, Urine Appearance Slightly cloudy, Urine pH 5.5, Ur Specific [place] 1.025, Urine Protein 100 H, Urine Glucose (UA) 100 H, Urine Ketones Negative, Urine Blood Negative, Urine Nitrate Positive H, Urine Bilirubin Negative, Prot Sulfosalicylic Acd 4+ H, Urine Urobilinogen Normal, Ur Leukocyte Esterase 100 H, Urine RBC None seen, Urine WBC 25-50 H, Ur Epithelial Cells 0-5, Urine Bacteria 2+ H, Urine Culture Comments Culture to follow 08/12/19 06:35: WBC 6.0 D, RBC 4.11 L, Hgb 12.8, Hct 39.8, MCV 96.8, MCH 31.1 H, MCHC 32.2, RDW 16.5 H, Plt Count 233, MPV 8.7, Immature Gran % (Auto) 0.30, Immature Gran # (Auto) 0.02, Neutrophils % 48.4, Lymphocytes % 39.2, Monocytes % 10.6 H, Eosinophils % 1.3, Basophils % 0.2, Nucleated RBC % 0.0, Neutrophils # 2.9, Lymphocytes # 2.33, Monocytes # 0.6, Eosinophils # 0.1, Absolute Basophils 0.0 08/12/19 06:35: Sodium 136, Plasma Sodium 137, Potassium 3.9, Chloride 103, Carbon Dioxide 24.2, Anion Gap 12.7, BUN 17, Creatinine 0.92, Est GFR (Non-Af Amer) 70, BUN/Creatinine Ratio 18.5, Random Glucose 161 H D, Calcium 7.3 L, Calcium Adj for Albumin 8.3 L, Total Bilirubin 0.9, AST 9, ALT 11 L, Alkaline Phosphatase 87, Total Protein 6.4, Albumin 2.4 L Discharge Location: Home Disposition: Home self-care Condition: Stable Face to Face Encounter completed per CMS Guidelines: No Discharge Activity: Activity as tolerated Discharge Diet: General/regular food Referrals: Phil Pinto DO [Primary Care Provider] - Complete Home Medications List: Complete Home Medication List: Spironolactone [Aldactone] 25 mg PO DAILY 06/22/12 Carvedilol [Coreg] 37.5 mg PO BID 02/03/13 Digoxin [Lanoxin] 0.125 mg PO DAILY 02/03/13 Potassium Chloride 20 meq PO DAILY 02/03/13 Insulin Lispro [Humalog] 0 - 24 units SC AC #0 vial 02/04/13 Nitroglycerin [Nitrostat] 0.4 mg SL PRN PRN #0 btl 02/04/13 Insulin Glargine,Hum.rec.anlog [Lantus] 20 unit SQ QAM 08/08/13 hydrALAZINE HCL [Apresoline] 75 mg PO 1000,1400,2200 01/02/16 Ivabradine HCl [Corlanor] 5 mg PO BID 01/02/19 Aspirin [Aspirin EC] 81 mg PO DAILY 01/03/19 Metoprolol Tartrate [Lopressor] 50 mg PO BID #60 tab 01/03/19 Valsartan 80 mg PO DAILY 01/03/19 Furosemide [Lasix] 160 mg PO DAILY 08/11/19 Potassium Chloride [K-Dur] 20 meq PO BIDWM 08/11/19
[2019-08-12] MEDS: SPIRONOLACTONE 25 MG TABLET PO SCH (09:54)
[2019-08-12] MEDS: LOSARTAN POTASSIUM 50 MG TABLET PO SCH (09:55)
[2019-08-12] MEDS: CARVEDILOL 25 MG, CARVEDILOL 12.5 MG PO SCH ×2 (09:55)
[2019-08-12] MEDS: Ivabradine Hcl [Corlanor] 5 MG PO SCH (09:55)
[2019-08-12] MEDS: FUROSEMIDE 80 MG TABLET PO SCH (09:56)
[2019-08-12] MEDS: METOPROLOL TARTRATE 50 MG TABLET PO SCH (09:56)
--- NOTE | 2019-08-12 10:32 | PN ---
Dictated Progress Note - Date and Time Seen: Date: 08/12/19 Time: 10:30 - Progress Note Narrative: Feeling much better. Denies abdominal pain. Having bowel function. Vital Signs - Last Taken Temp 36.1 C 08/12/19 10:00 Pulse 99 08/12/19 10:00 Resp 17 08/12/19 10:00 BP 107/68 08/12/19 10:00 Pulse Ox 97 08/12/19 10:00 Abnormal/Pending Laboratory Last 24 HRS 08/12/19 08/12/19 06:35 06:35 RBC 4.11 L MCH 31.1 H RDW 16.5 H Monocytes % 10.6 H Random Glucose 161 H D Calcium 7.3 L Calcium Adj for Albumin 8.3 L ALT 11 L Albumin 2.4 L Culture 08/10/19 22:30 Urine Culture - Preliminary Urine,Clean Catch Gram Negative Bacilli Beta Hemolytic Strep NAD non labored respirations abd soft, non distended, non tender Imp: resolved SBO Plan dc home
[2019-08-12] MEDS: DIGOXIN 0.125 MG TABLET PO SCH (10:34)
[2019-08-12] MEDS: POTASSIUM CHLORIDE 20 MEQ TABLET.SA PO SCH (10:34)
[2019-08-12] MEDS: ASPIRIN 81 MG TABLET.DR PO SCH (10:34)
[2019-08-12] MEDS: FAMOTIDINE 20 MG in DEXTROSE 5 % IN WATER 100 ML IV SCH ×2 (10:38)
[2019-08-12 12:22] VITALS: BP 107/71
== END 2019-08-12 13:25 | disposition home or self-care (01) | DRG 389 ==
LOC: ER 20:28 → MS 08-11 01:10
PROVIDERS: ADMIT Family Medicine; ATTEND Family Medicine
CPT/HCPCS: 36415; 71010; 71045; 74177; 80053; 81001; 82150; 83690; 85025; 87077; 87086; 87186; 90686; 93005; 96361; 96374; 96375; 96376; 99285; J2405; Q9963; Q9967

== ENCOUNTER 2020-02-10 12:47 | Inpatient (IN) ==
[2020-02-10] MEDS ORDERED: NORMAL SALINE 250 ML IV ONE (13:12)
[2020-02-10 13:22] LABS: Hemoglobin 13.5 gm/dL (12.5-16.0); Mean Cell Volume 88.7 fl (78-100); Mean Corpuscular Hemoglobin 27.2 pg (27-31); Mean Corpuscular Hgb Conc 30.7 g/dl (32-36); Mean Platelet Volume 9.7 fl (8-12.5); Neutrophil % 52.6 % (42-75.0); Platelet Count 170 K/mm3 (150-450); Red Blood Count 4.96 M/mm3 (4.2-5.4); Red Cell Distribution Width 20.2 % (11.5-14.0); White Blood Count 7.6 K/mm3 (4.0-10.5)
[2020-02-10 13:38] LABS: Troponin I 0.034 ng/mL (0.00-0.10)
[2020-02-10 13:39] LABS: Albumin * 2.2 gm/dl (3.4-5.0); Anion Gap 11.7 mmol/L (6.8-13.8); BUN/Creatinine Ratio 12.4 (9.0-21.6); Bilirubin, Total 1.2 mg/dL (0.0-1.1); Ca. Corrected For Albumin 9.2 mg/dL (8.4-10.2); Calcium * 8.1 mg/dL (7.9-10.9); Carbon Dioxide 24.4 mmol/L (24-32.6); Digoxin 0.4 ng/mL (0.5-2.0); Potassium 4.1 mmol/L (3.4-4.6); Total Protein 6.5 gm/dL (6.2-8.2)
[2020-02-10] MEDS: NORMAL SALINE 1,000 ML IV PRN (13:53)
[2020-02-10] MEDS ORDERED: PROCHLORPERAZINE EDISYLATE 5 MG/ML VIAL IV ONE (14:05)
[2020-02-10] MEDS ORDERED: FUROSEMIDE 10 MG/ML VIAL IV ONE (14:15)
--- NOTE | 2020-02-10 14:31 | ERNOTE ---
Medical Problem HPI - Narrative Date of Service: 02/10/20 - General Chief Complaint: General Assessment Time Seen by Provider: 02/10/20 12:53 Source: patient Exam Limitations: no limitations - Immun/Allergies/Home Medications Immunizations: IMMUNIZATION HX Immunizations Up to Date Yes History of Influenza Vaccine No Hx Pneumococcal Vaccination No Allergies/Adverse Reactions: Allergies codeine Allergy (Severe, Verified 02/10/20 12:58) Other penicillin G Allergy (Severe, Verified 02/10/20 12:58) Shortness of Breath ketorolac tromethamine [From Toradol] Allergy (Intermediate, Verified 02/10/20 12:58) Other cefaclor [From Ceclor] Allergy (Verified 02/10/20 12:58) Penicillins Allergy (Verified 02/10/20 12:58) sumatriptan [From Imitrex] Allergy (Verified 02/10/20 12:58) sumatriptan succinate [From Imitrex] Allergy (Verified 02/10/20 12:58) topiramate [From Topamax] Allergy (Verified 02/10/20 12:58) surgical tape Adverse Reaction (Severe, Uncoded 02/10/20 12:58) Other Home Medications: HOME MEDICATIONS Spironolactone [Aldactone] 25 mg PO DAILY 06/22/12 [Last Taken 07/04/12 10:00] Carvedilol [Coreg] 37.5 mg PO BID 02/03/13 [Last Taken Unknown] Digoxin [Lanoxin] 0.125 mg PO DAILY 02/03/13 [Last Taken Unknown] Potassium Chloride 20 meq PO DAILY 02/03/13 [Last Taken Unknown] Insulin Lispro [Humalog] 0 - 24 units SC AC #0 vial 02/04/13 [Last Taken Unknown] Nitroglycerin [Nitrostat] 0.4 mg SL PRN PRN #0 btl 02/04/13 [Last Taken Unknown] Insulin Glargine,Hum.rec.anlog [Lantus] 20 unit SQ QAM 08/08/13 [Last Taken Unknown] hydrALAZINE HCL [Apresoline] 75 mg PO 1000,1400,2200 01/02/16 [Last Taken Unknown] Ivabradine HCl [Corlanor] 5 mg PO BID 01/02/19 [Last Taken Unknown] Aspirin [Aspirin EC] 81 mg PO DAILY 01/03/19 [Last Taken Unknown] Metoprolol Tartrate [Lopressor] 50 mg PO BID #60 tab 01/03/19 [Last Taken Unknown] Valsartan 80 mg PO DAILY 01/03/19 [Last Taken Unknown] Furosemide [Lasix] 160 mg PO DAILY 08/11/19 [Last Taken Unknown] Potassium Chloride [K-Dur] 20 meq PO BIDWM 08/11/19 [Last Taken Unknown] - History of Present History Narrative: Patient presents to the ED for lightheadedness. She had been taking care of young family members last night. This am went out for yard sale shopping. She got out of the car and was lightheaded. She needed to stay in the car and could not go to the yard sales because of lightheadedness. SHe tried to get into her house but was to lightheaded. No CP. Mild SOB with lying flat. Because she was so lightheaded EMS called. 250ml NS given. She took a half dose of Lasix this am because she would not be near a bathroom. Nausea with this. No fever. Dry cough from her CHF but no new cough. No dysuria. More lightheaded with standing. Timing: constant Severity: severe Modifying Factors - (Improves): Present: rest Modifying Factors - (Worsens): Present: other - standing Review of Systems - Review of Systems Constitutional: Absent: fever EYE: Present: no symptoms reported ENT: Absent: sore throat Respiratory: Present: See HPI Cardiology: Absent: chest pain, palpitations Gastrointestinal/Abdominal: Present: nausea. Absent: abdominal pain Genitourinary: Absent: frequency Skin: Present: other - recently seen for infected hair follicle. Neurological: Present: other - no focal weakness All Other Systems: All systems neg except as marked Medical History (Last Reviewed 02/10/20 @ 14:25 by Paolo Estrella MD) CHF (congestive heart failure) (Acute) With Left Ventricular changes. Sees Dr. West [facility] Adrenal tumor Cardiomyopathy Sees Dr. West Started Entresto in December 2017 Diabetic acidosis, type II Hx of migraines Insomnia Irregular heart beat Nervousness uterine tumor Surgical History: Surgical History (Last Reviewed 02/10/20 @ 14:25 by Paolo Estrella MD) History of tonsillectomy (Acute) This was done twice once in 1995 Grew back and had done again 2002 H/O dilation and curettage Hx of tubal ligation ICD (implantable cardioverter-defibrillator), biventricular, in situ Family History: Family History (Last Reviewed 02/10/20 @ 14:25 by Paolo Estrella MD) Father HX: breast cancer Hx of ovarian cancer Hx of colon cancer, stage IV No relevant family history Mother HX: breast cancer Hx of ovarian cancer Brother Hx of skin cancer, basal cell Uncle Brain cancer Lung cancer Social History: (This Medical Record has been edited. Action required.) Tobacco: Smoking Status: Current every day smoker tobacco type: cigarettes Smoking cigarettes per day: 6 Alcohol: alcohol intake: never Substance Use: substance use type: does not use Physical Exam - Physical Exam General Appearance: Present: alert, no apparent distress Head Exam: Present: normal inspection, no evidence of injury Eye Exam: Normal inspection: bilateral, PERRL: bilateral Ears, Nose, Throat: Present: normal ENT inspection Neck: Present: normal inspection Respiratory: Present: no respiratory distress, normal breath sounds, no accessory muscle use, lungs clear Cardiovascular/Chest: Present: regular rate, rhythm, normal peripheral pulses Gastrointestinal/Abdominal: Present: normal bowel sounds, nontender, nondistended, soft Back Exam: Present: no CVA tenderness Extremity Exam: Present: other - trace edema, Neurological Exam: Present: alert, no motor/sensory deficits, other - no acute unilateral focal motor or sensory deficits Skin Exam: Present: normal color, warm/dry Progress - Results and Orders Patient's Lab Results:: I have reviewed the patient's lab results. - Vital Signs Patient's Vital Signs:: I have reviewed the patient's vital signs. Vital Signs: Vital Signs 02/10/20 12:55 02/10/20 12:58 02/10/20 13:45 Temperature 35.8 C L 36.2 C Pulse Rate 74 72 70 Respiratory Rate 13 18 18 Blood Pressure 142/91 H 70/40 L 72/42 L O2 Sat by Pulse Oximetry 98 93 96 02/10/20 13:50 02/10/20 13:55 02/10/20 14:03 Temperature Pulse Rate 70 85 91 Respiratory Rate 18 18 20 Blood Pressure 83/50 L 80/51 L 95/51 O2 Sat by Pulse Oximetry 96 96 96 02/10/20 14:15 Temperature Pulse Rate 91 Respiratory Rate 22 H Blood Pressure 100/66 O2 Sat by Pulse Oximetry 95 - EKG EKG #1 EKG: NSR EKG read: Interp. by me EKG Comments: NSR rate 73. Non-specific ST/T wave changes without evidence of STEMI. - X-Ray X-Ray #1 X-Ray: chest Interpretation: Interp. by me X-ray Comments: I reviewed images and official radiology report, no acute process - Progress/Reassessment Chief Complaint: General Assessment Progress Note-Subjective: 02/10/20 14:28 Patient had BP here that was not accurate on arrival. Had persistent BP 70 systolic with repeat manual checks. Initial fluid bolus had no effect therefore Dopamine started. With 10mcg dopamine BP was 95 and she felt much improved. No clear etiology at this point. No STEMI, initial trop negative. No clear findings of sepsis. D/W Dr odonnell, will be admitted to SCU for further evaluation and management. Patient agreeable. 02/10/20 15:50 Patient did have mild UTI. I really doubt this is sepsis from UTI given the overall picture. Given her innumberable allergies and drug interactions IV Vanco was given. I will attempt to order IV Bactrim but will need to consult with pharmacy who is not in the hospital at this time. Flagyl initial dose given for trichomonas in urine. Discussed again with Dr Odonnell. Departure Clinical Impression: Hypotension, CHF (congestive heart failure), Hyperglycemia, UTI (urinary tract infection), Trichomoniasis - Departure Disposition: Still a patient Condition: Fair
[2020-02-10] MEDS ORDERED: diphenhydrAMINE HCL 50 MG/ML VIAL IV ONE (14:33)
[2020-02-10] MEDS ORDERED: diphenhydrAMINE HCL 50 MG/ML VIAL ONE (14:35)
[2020-02-10 15:00] LABS: Urine Bilirubin Negative (NEGATIVE); Urine Blood Negative /ul (NEGATIVE); Urine Ketone Negative (NEGATIVE); Urine Protein 100 mg/dL (NEGATIVE); Urine Specific Gravity 1.015 SP.GR. (1.005-1.010); Urine Urobilinogen Normal (NORMAL)
[2020-02-10 15:19] LABS: Urine Nitrite Positive (NEGATIVE)
[2020-02-10 15:20] LABS: Urine Appearance Slightly Cloudy (CLEAR); Urine Color Yellow; Urine RBC TRACE /hpf (0-5)
[2020-02-10 15:21] LABS: Urine Bacteria 3+; Urine Fine Granular Cast 0-5 /LPF; Urine Hyaline Cast 0-5 /LPF; Urine Trichomonas Few - 1+
[2020-02-10] MEDS ORDERED: VANCOMYCIN/WATER FOR INJ (PEG) 1 GM/200 ML BAG IV ONE (15:36)
[2020-02-10] MEDS ORDERED: metroNIDAZOLE 500 MG TABLET PO ONE (15:47)
[2020-02-10] MEDS ORDERED: NORMAL SALINE 500 ML IV ONE (19:11)
--- NOTE | 2020-02-10 23:45 | HP ---
Chief Complaint - Chief Complaint Date of Service: 02/10/20 Time of Service: 17:00 Chief Complaint: Lightheadedness History of Present Illness: Anne is a 44 yo female with history of cardiomyopathy and chronic systolic CHF. She was out yard selling today when she began getting lightheaded and weak. She reports the day prior had been routine. Her only difference today was taking a half dose of her lasix because she didn't want to be running to the bathroom while yard selling. As the day progressed she began more fatigued and was unable to get out of the car to yard sell with her mother. She denies chest pain. She reports some shortness of breath. She was brought by family to the [facility] ER. She was found to be significantly hypotensive with systolic below 90. She was give IV fluids but they were unable to give aggressive fluids due to her cardiac history. Her blood pressure did not significantly improve and she was therefore started on dopamine drip. Urine is suspicious for UTI. Trichomonas present in urine. She is a diabetic and blood sugars have been in the 400s this week. Medical History (Last Reviewed 02/10/20 @ 17:09 by Veda Harris RN) CHF (congestive heart failure) (Acute) With Left Ventricular changes. Sees Dr. West [facility] Adrenal tumor Cardiomyopathy Sees Dr. West Started Entresto in December 2017 Diabetic acidosis, type II Hx of migraines Insomnia Irregular heart beat uterine tumor Surgical History: Surgical History (Last Reviewed 02/10/20 @ 17:09 by Veda Harris RN) History of tonsillectomy (Acute) This was done twice once in 1995 Grew back and had done again 2002 H/O dilation and curettage Hx of tubal ligation ICD (implantable cardioverter-defibrillator), biventricular, in situ Family History: Family History (Last Reviewed 02/10/20 @ 17:14 by Veda Harris RN) Father Diabetes No relevant family history Mother No problems noted. Brother Hx of skin cancer, basal cell Uncle Lung cancer Brain cancer Grandmother Hx of colon cancer, stage IV Hx of ovarian cancer Aunt Hx of ovarian cancer HX: breast cancer Family/Other Brain cancer Social History: (Last Reviewed 02/10/20 @ 17:19 by Veda Harris RN) Social History: senior care: No Marital status: current occupational status: disabled Highest education level completed: high school graduate Service: No Tobacco: Smoking Status: Current every day smoker tobacco type: cigarettes Smoking cigarettes per day: 6 Years smoked: 20 quit status: considering quitting Alcohol: alcohol intake: never Substance Use: substance use type: does not use Dietary Habits: caffeine: Yes Type: carbonated beverages Review Of Systems (GEN) - Review of Systems Generalized/Overall Review: Present: Weakness, Diaphoresis, Fatigue. Absent: Chills, Fever EENTM: Present: No Symptoms Reported Respiratory: Present: Cough, Shortness of Breath Cardiac: Absent: Chest Pain, Edema Abdominal: Absent: Nausea, Vomiting, Abdominal Pain, Diarrhea Genitourinary: Absent: Burning, Itching, Urgency, Frequency Neurological: Present: Headache. Absent: Numbness Skin: Absent: Lesions, Lumps Endocrine: Present: Increased Thirst. Absent: Excessive Sweating Immunizations: IMMUNIZATION HX Immunizations Up to Date Yes History of Influenza Vaccine No Hx Pneumococcal Vaccination No Allergies/Adverse Reactions: Allergies Allergy/AdvReac Type Severity Reaction Status Date / Time codeine Allergy Severe Other Verified 02/10/20 17:21 penicillin G Allergy Severe Shortness Verified 02/10/20 17:21 of Breath Penicillins Allergy Severe Shortness Verified 02/10/20 17:21 of Breath ketorolac tromethamine Allergy Intermediate Other Verified 02/10/20 17:21 [From Toradol] sumatriptan [From Imitrex] Allergy Intermediate Verified 02/10/20 17:21 sumatriptan succinate Allergy Intermediate Verified 02/10/20 17:21 [From Imitrex] cefaclor [From Ceclor] Allergy Mild Hives Verified 02/10/20 17:21 topiramate [From Topamax] Allergy Mild Verified 02/10/20 17:21 surgical tape AdvReac Severe Other Uncoded 02/10/20 17:21 Home Medications: HOME MEDICATIONS Spironolactone [Aldactone] 25 mg PO DAILY 06/22/12 [Last Taken 07/04/12 10:00] Carvedilol [Coreg] 37.5 mg PO BID 02/03/13 [Last Taken Unknown] Digoxin [Lanoxin] 0.125 mg PO DAILY 02/03/13 [Last Taken Unknown] Potassium Chloride 20 meq PO DAILY 02/03/13 [Last Taken Unknown] Insulin Lispro [Humalog] 0 - 24 units SC AC #0 vial 02/04/13 [Last Taken Unknown] Nitroglycerin [Nitrostat] 0.4 mg SL PRN PRN #0 btl 02/04/13 [Last Taken Unknown] Insulin Glargine,Hum.rec.anlog [Lantus] 25 unit SQ QAM 08/08/13 [Last Taken Unknown] hydrALAZINE HCL [Apresoline] 75 mg PO 1000,1400,2200 01/02/16 [Last Taken Unknown] Aspirin [Aspirin EC] 81 mg PO DAILY 01/03/19 [Last Taken Unknown] Metoprolol Tartrate [Lopressor] 50 mg PO BID #60 tab 01/03/19 [Last Taken Unknown] Valsartan 80 mg PO DAILY 01/03/19 [Last Taken Unknown] Furosemide [Lasix] 160 mg PO DAILY 08/11/19 [Last Taken Unknown] Potassium Chloride [K-Dur] 20 meq PO BIDWM 08/11/19 [Last Taken Unknown] Exam - Exam Vital Signs: Vital Signs - Last Taken Temp 36.5 C 02/10/20 16:42 Pulse 107 H 02/10/20 23:15 Resp 22 H 02/10/20 23:15 BP 117/78 02/10/20 23:15 Pulse Ox 95 02/10/20 23:15 Constitutional: Present: Alert, Oriented x3, Cooperative ENT Exam: Present: hearing grossly normal Eye Exam: bilateral eye: normal inspection Respiratory: Present: lungs clear, normal breath sounds Cardiovascular/Chest: Present: regular rate, rhythm, no edema, no murmur Abdomen: Present: Normal bowel sounds, soft, nontender, nondistended Skin Exam: Present: normal color, warm/dry, no cyanosis Lymphatic: Present: no adenopathy Appearance: Present: appropriate appearance, appropriate insight Eye contact: Present: cooperative, good eye contact, normal speech Thoughts: Present: normal thought pattern, no apparent hallucination Diagnostic Studies: Abnormal Lab Results 02/10/20 02/10/20 02/10/20 Range/Units 13:17 13:17 14:40 MCHC 30.7 L (32-36) g/dl RDW 20.2 H (11.5-14.0) % Immature Gran % (Auto) 1.00 H (0.001-0.429) % Immature Gran # (Auto) 0.08 H (0.000-0.0310) K/mm3 Random Glucose 409 H (70-110) mg/dL Total Bilirubin 1.2 H (0.0-1.1) mg/dL ALT 12 L (19-67) U/L B-Natriuretic Peptide 2381 H (5-150) pg/mL Albumin 2.2 L (3.4-5.0) gm/dl Urine Protein 100 H (NEGATIVE) mg/dL Urine Glucose (UA) >=1000 H (NEGATIVE) mg/dL Urine Nitrate Positive H (NEGATIVE) Prot Sulfosalicylic Acd 4+ H (0) mg/dL Ur Leukocyte Esterase 100 H (NEGATIVE) /ul Urine WBC 10-25 H (0-5) /hpf Ur Epithelial Cells 5-10 H (0-5) /hpf Urine Bacteria 3+ H (NONE) Hyaline Casts 0-5 H (NONE) /LPF Fine Granular Casts 0-5 H (NONE) /LPF Urine Trichomonas Few - 1+ H (NONE) Digoxin 0.4 L (0.5-2.0) ng/mL Laboratory Results WBC 7.6 K/mm3 (4.0-10.5) 02/10/20 13:17 RBC 4.96 M/mm3 (4.2-5.4) 02/10/20 13:17 Hgb 13.5 gm/dL (12.5-16.0) 02/10/20 13:17 Hct 44.0 % (37.0-47.0) 02/10/20 13:17 MCV 88.7 fl (78-100) 02/10/20 13:17 MCH 27.2 pg (27-31) 02/10/20 13:17 MCHC 30.7 g/dl (32-36) L 02/10/20 13:17 RDW 20.2 % (11.5-14.0) H 02/10/20 13:17 Plt Count 170 K/mm3 (150-450) 02/10/20 13:17 MPV 9.7 fl (8-12.5) 02/10/20 13:17 Immature Gran % (Auto) 1.00 % (0.001-0.429) H 02/10/20 13:17 Immature Gran # (Auto) 0.08 K/mm3 (0.000-0.0310) H 02/10/20 13:17 Neutrophils % 52.6 % (42-75.0) 02/10/20 13:17 Lymphocytes % 37.3 % (20-51) 02/10/20 13:17 Monocytes % 7.7 % (0.0-9) 02/10/20 13:17 Eosinophils % 0.9 % (0.0-3.0) 02/10/20 13:17 Basophils % 0.5 % (0.0-1.0) 02/10/20 13:17 Nucleated RBC % 0.0 k/mm3 (0-1) 02/10/20 13:17 Neutrophils # 4.0 K/mm3 (1.3-6.0) 02/10/20 13:17 Lymphocytes # 2.85 k/mm3 (1.5-3.5) 02/10/20 13:17 Monocytes # 0.6 k/mm3 (0.0-1.0) 02/10/20 13:17 Eosinophils # 0.1 k/mm3 (0.0-0.7) 02/10/20 13:17 Absolute Basophils 0.0 k/mm3 (0.0-0.1) 02/10/20 13:17 Sodium 132 mmol/L (132-142) 02/10/20 13:17 Plasma Sodium 137 mmol/L (130-142) 02/10/20 13:17 Potassium 4.1 mmol/L (3.4-4.6) 02/10/20 13:17 Chloride 100 mmol/L (97-106) 02/10/20 13:17 Carbon Dioxide 24.4 mmol/L (24-32.6) 02/10/20 13:17 Anion Gap 11.7 mmol/L (6.8-13.8) 02/10/20 13:17 BUN 12 mg/dL (3-23) 02/10/20 13:17 Creatinine 0.97 mg/dL (0.4-1.4) 02/10/20 13:17 Est GFR (Non-Af Amer) 66 mL/min (60-130) 02/10/20 13:17 BUN/Creatinine Ratio 12.4 (9.0-21.6) 02/10/20 13:17 Random Glucose 409 mg/dL (70-110) H 02/10/20 13:17 Lactic Acid, Venous 2.0 mmol/L (0.4-2.0) 02/10/20 13:20 Calcium 8.1 mg/dL (7.9-10.9) 02/10/20 13:17 Calcium Adj for Albumin 9.2 mg/dL (8.4-10.2) 02/10/20 13:17 Total Bilirubin 1.2 mg/dL (0.0-1.1) H 02/10/20 13:17 AST 15 U/L (0-48) 02/10/20 13:17 ALT 12 U/L (19-67) L 02/10/20 13:17 Alkaline Phosphatase 103 U/L (50-170) 02/10/20 13:17 Troponin I 0.026 ng/mL (0.00-0.10) 02/10/20 19:33 B-Natriuretic Peptide 2381 pg/mL (5-150) H 02/10/20 13:17 Total Protein 6.5 gm/dL (6.2-8.2) 02/10/20 13:17 Albumin 2.2 gm/dl (3.4-5.0) L 02/10/20 13:17 Procalcitonin 0.10 ng/mL (0.05-0.50) 02/10/20 13:20 Urine Color Yellow 02/10/20 14:40 Urine Appearance Slightly cloudy (CLEAR) 02/10/20 14:40 Urine pH 6.0 pH (5.0-7.0) 02/10/20 14:40 Ur Specific [place] 1.015 SP.GR. (1.005-1.010) 02/10/20 14:40 Urine Protein 100 mg/dL (NEGATIVE) H 02/10/20 14:40 Urine Glucose (UA) >=1000 mg/dL (NEGATIVE) H 02/10/20 14:40 Urine Ketones Negative mg/dL (NEGATIVE) 02/10/20 14:40 Urine Blood Negative /ul (NEGATIVE) 02/10/20 14:40 Urine Nitrate Positive (NEGATIVE) H 02/10/20 14:40 Urine Bilirubin Negative mg/dl (NEGATIVE) 02/10/20 14:40 Prot Sulfosalicylic Acd 4+ mg/dL (0) H 02/10/20 14:40 Urine Urobilinogen Normal EU/dl (NORMAL) 02/10/20 14:40 Ur Leukocyte Esterase 100 /ul (NEGATIVE) H 02/10/20 14:40 Urine RBC Trace /hpf (0-5) 02/10/20 14:40 Urine WBC 10-25 /hpf (0-5) H 02/10/20 14:40 Ur Epithelial Cells 5-10 /hpf (0-5) H 02/10/20 14:40 Urine Bacteria 3+ (NONE) H 02/10/20 14:40 Hyaline Casts 0-5 /LPF (NONE) H 02/10/20 14:40 Fine Granular Casts 0-5 /LPF (NONE) H 02/10/20 14:40 Urine Trichomonas Few - 1+ (NONE) H 02/10/20 14:40 Urine Culture Comments Culture to follow 02/10/20 14:40 Digoxin 0.4 ng/mL (0.5-2.0) L 02/10/20 13:17 SARS-CoV-2 (PCR) Not detected (ND) 02/10/20 14:10 Assessment/Plan - Narrative Narrative: Anne is a 44 yo female with: 1) Hypotension refractory to fluids. Started on dopamin drip in the ER. Will admit to the SCU and continue on drip. Will attempt to wean from the drip as able. Unable to aggressively treat with IV fluids due to CHF and cardiomyopathy. I believe the hypotension is a combination of her antihypertensive medications (which will be held), dehydration due to excessive urine loss with hyperglycemia, and potentially an effect of UTI. I do not believe this is secondary to sepsis as there is no end organ failure, procalcitonin is normal, lactic acid is normal, and she is not tachycardiac. Hypotension is also complicated by her cardiomyopathy. 2) UTI evidence from UA will treat with bactrim. Will culture blood and urine. No evidence of sepsis at this time. 3) Diabetes - Will monitor sugar and treat with insulin. Will adjust insulin to control sugar. 4) Social - Anticipate >2 midnights for correction of blood pressure and to wean from drip and treat underlying cause. - Assessment/Plan (1) Hypotension Problem: Acute Qualifiers: Hypotension type: unspecified hypotension type Qualified Code(s): I95.9 - Hypotension, unspecified (2) UTI (urinary tract infection) Problem: Acute Qualifiers: Urinary tract infection type: acute cystitis Hematuria presence: without hematuria Qualified Code(s): N30.00 - Acute cystitis without hematuria (3) Insulin dependent diabetes mellitus Problem: Acute (4) CHF (congestive heart failure) Problem: Chronic Qualifiers: Heart failure type: systolic Heart failure chronicity: chronic Qualified Code(s): I50.22 - Chronic systolic (congestive) heart failure (5) Trichomoniasis Problem: Acute
[2020-02-11 06:36] LABS: Hematocrit 46.8 % (37.0-47.0); Hemoglobin 14.2 gm/dL (12.5-16.0); Mean Cell Volume 88.3 fl (78-100); Mean Corpuscular Hemoglobin 26.8 pg (27-31); Mean Corpuscular Hgb Conc 30.3 g/dl (32-36); Mean Platelet Volume 9.8 fl (8-12.5); Neutrophil # 3.6 K/mm3 (1.3-6.0); Neutrophil % 53.9 % (42-75.0); Platelet Count 184 K/mm3 (150-450); Red Cell Distribution Width 20.4 % (11.5-14.0); White Blood Count 6.6 K/mm3 (4.0-10.5)
[2020-02-11 06:50] LABS: Albumin * 2.3 gm/dl (3.4-5.0); Anion Gap 9.9 mmol/L (6.8-13.8); Ca. Corrected For Albumin 9.5 mg/dL (8.4-10.2); Calcium * 8.5 mg/dL (7.9-10.9); Carbon Dioxide 26.8 mmol/L (24-32.6); Potassium 3.7 mmol/L (3.4-4.6); Total Protein 6.9 gm/dL (6.2-8.2); Troponin I 0.02 ng/mL (0.00-0.10)
[2020-02-11] MEDS: INSULIN LISPRO 100 UNITS/ML VIAL SC SCH ×2 (07:16→11:56)
[2020-02-11] MEDS: NORMAL SALINE 1,000 ML IV PRN (07:51)
[2020-02-11] MEDS ORDERED: POTASSIUM CHLORIDE 10 MEQ TABLET.SA PO SCH (09:00)
[2020-02-11] MEDS ORDERED: INSULIN GLARGINE,HUM.REC.ANLOG 100 UNITS/ML VIAL SC SCH (09:00)
[2020-02-11] MEDS ORDERED: DIGOXIN 0.125 MG TABLET PO SCH (09:00)
[2020-02-11] MEDS ORDERED: ASPIRIN 81 MG TABLET.DR PO SCH (09:00)
[2020-02-11] MEDS ORDERED: SULFAMETHOXAZOLE/TRIMETHOPRIM 1 TAB TABLET PO SCH (09:00)
[2020-02-11] MEDS ORDERED: POTASSIUM CHLORIDE 20 MEQ TABLET.SA PO SCH (09:00)
[2020-02-11] MEDS ORDERED: ACETAMINOPHEN 325 MG TABLET PO PRN (09:42)
[2020-02-11 14:56] VITALS: BP 109/70
--- NOTE | 2020-02-11 16:14 | DS ---
(1) Hypotension Problem: Resolved Qualifiers: Hypotension type: unspecified hypotension type Qualified Code(s): I95.9 - Hypotension, unspecified (2) UTI (urinary tract infection) Problem: Acute Qualifiers: Urinary tract infection type: acute cystitis Hematuria presence: without hematuria Qualified Code(s): N30.00 - Acute cystitis without hematuria (3) Insulin dependent diabetes mellitus Problem: Acute (4) CHF (congestive heart failure) Problem: Chronic Qualifiers: Heart failure type: systolic Heart failure chronicity: chronic Qualified Code(s): I50.22 - Chronic systolic (congestive) heart failure (5) Trichomoniasis Problem: Acute Date of Discharge:: 02/11/20 Hospital Course: Anne is a 44 yo female with insulin dependent diabetes mellitus, Cardiomyopathy with chronic systolic chf who was admitted for hypotension secondary to UTI. This was complicated by her antihypertensives and chronic cardiomyopathy. She was admitted on dopamine drip and started on antibiotics. She was given IV fluids gently due to her CHF history. Blood pressure improved and eventually she was able to be weaned off the drip. She was feeling great and recovered sooner than expected. She is adamant that she goes home today. Her blood pressure has been normal without the drip for 6 hours. SHe will be continued on outpatient treatment for UTI and trichomonas. She will follow up with her Dr. Pinto. I will have her hold her blood pressure medications until her blood pressure comes up above 120. She will follow up with her DrBrittany in the next week. In addition I was in process of completing her discharge when she left without receiving discharge instructions and signed out AMA. Procedures Performed: none Results and Findings: Pending Mircobiology Results 02/10/20 13:45 Blood Blood Culture - Preliminary NO GROWTH 24 HOURS 02/10/20 13:20 Blood Blood Culture - Preliminary NO GROWTH 24 HOURS 02/10/20 14:40 Urine,Clean Catch Urine Culture - Preliminary Gram Negative Bacilli Lab Pending Results 02/10/20 13:17: WBC 7.6, RBC 4.96, Hgb 13.5, Hct 44.0, MCV 88.7, MCH 27.2, MCHC 30.7 L, RDW 20.2 H, Plt Count 170, MPV 9.7, Immature Gran % (Auto) 1.00 H, Immature Gran # (Auto) 0.08 H, Neutrophils % 52.6, Lymphocytes % 37.3, Monocytes % 7.7, Eosinophils % 0.9, Basophils % 0.5, Nucleated RBC % 0.0, Neutrophils # 4.0, Lymphocytes # 2.85, Monocytes # 0.6, Eosinophils # 0.1, Absolute Basophils 0.0 02/10/20 13:17: Sodium 132, Plasma Sodium 137, Potassium 4.1, Chloride 100, Carbon Dioxide 24.4, Anion Gap 11.7, BUN 12, Creatinine 0.97, Est GFR (Non-Af Amer) 66, BUN/Creatinine Ratio 12.4, Random Glucose 409 H, Calcium 8.1, Calcium Adj for Albumin 9.2, Total Bilirubin 1.2 H, AST 15, ALT 12 L, Alkaline Phosphatase 103, Troponin I 0.034, B-Natriuretic Peptide 2381 H, Total Protein 6.5, Albumin 2.2 L, Digoxin 0.4 L 02/10/20 13:20: Procalcitonin 0.10 02/10/20 13:20: Lactic Acid, Venous 2.0 02/10/20 14:10: SARS-CoV-2 (PCR) Not detected 02/10/20 14:40: Urine Color Yellow, Urine Appearance Slightly cloudy, Urine pH 6.0, Ur Specific [place] 1.015, Urine Protein 100 H, Urine Glucose (UA) >=1000 H, Urine Ketones Negative, Urine Blood Negative, Urine Nitrate Positive H, Urine Bilirubin Negative, Prot Sulfosalicylic Acd 4+ H, Urine Urobilinogen Normal, Ur Leukocyte Esterase 100 H, Urine RBC Trace, Urine WBC 10-25 H, Ur Epithelial Cells 5-10 H, Urine Bacteria 3+ H, Hyaline Casts 0-5 H, Fine Granular Casts 0-5 H, Urine Trichomonas Few - 1+ H, Urine Culture Comments Culture to follow 02/10/20 19:33: Troponin I 0.026 02/11/20 06:06: WBC 6.6, RBC 5.30, Hgb 14.2, Hct 46.8, MCV 88.3, MCH 26.8 L, MCHC 30.3 L, RDW 20.4 H, Plt Count 184, MPV 9.8, Immature Gran % (Auto) 0.90 H, Immature Gran # (Auto) 0.06 H, Neutrophils % 53.9, Lymphocytes % 35.3, Monocytes % 8.1, Eosinophils % 1.2, Basophils % 0.6, Nucleated RBC % 0.0, Neutrophils # 3.6, Lymphocytes # 2.32, Monocytes # 0.5, Eosinophils # 0.1, Absolute Basophils 0.0 02/11/20 06:06: Sodium 133, Plasma Sodium 138, Potassium 3.7, Chloride 100, Carbon Dioxide 26.8, Anion Gap 9.9, BUN 12, Creatinine 0.86, Est GFR (Non-Af Amer) 76, BUN/Creatinine Ratio 14.0, Random Glucose 433 H, Calcium 8.5, Calcium Adj for Albumin 9.5, Total Bilirubin 1.0, AST 14, ALT 13 L, Alkaline Phosphatase 118, Troponin I 0.020, Total Protein 6.9, Albumin 2.3 L Discharge Location: Home Disposition: Against medical advice Condition: Fair Discharge Activity: Activity as tolerated Discharge Diet: Consistent carbs, Low salt Referrals: Phil Pinto DO [Primary Care Provider] - One Week Problem Oriented Discharge Instructions to Patient/Family: Urinary Tract Infection, Adult, [id number] Prescriptions (Any new or edited meds): Sulfamethoxazole/Trimethoprim [Bactrim Ds] 1 tab PO BID #10 tab Transmission Status: Pending to [facility] metroNIDAZOLE [Flagyl] 500 mg PO Q8H #21 tab Transmission Status: Pending to [facility] Complete Home Medications List: Complete Home Medication List: Spironolactone [Aldactone] 25 mg PO DAILY 06/22/12 Carvedilol [Coreg] 37.5 mg PO BID 02/03/13 Digoxin [Lanoxin] 0.125 mg PO DAILY 02/03/13 Potassium Chloride 20 meq PO DAILY 02/03/13 Insulin Lispro [Humalog] 0 - 24 units SC AC #0 vial 02/04/13 Nitroglycerin [Nitrostat] 0.4 mg SL PRN PRN #0 btl 02/04/13 Insulin Glargine,Hum.rec.anlog [Lantus] 25 unit SQ QAM 08/08/13 hydrALAZINE HCL [Apresoline] 75 mg PO 1000,1400,2200 01/02/16 Aspirin [Aspirin EC] 81 mg PO DAILY 01/03/19 Metoprolol Tartrate [Lopressor] 50 mg PO BID #60 tab 01/03/19 Valsartan 80 mg PO DAILY 01/03/19 Furosemide [Lasix] 160 mg PO DAILY 08/11/19 Potassium Chloride [K-Dur] 20 meq PO BIDWM 08/11/19 Acetaminophen [Tylenol] 650 mg PO Q6H PRN tablet 02/11/20 Sulfamethoxazole/Trimethoprim [Bactrim Ds] 1 tab PO BID #10 tab 02/11/20 metroNIDAZOLE [Flagyl] 500 mg PO Q8H #21 tab 02/11/20 Forms: Patient Portal Registration
== END 2020-02-11 16:00 | disposition left against medical advice (07) | DRG 315 ==
LOC: ER 12:47 → SCU 14:44
PROVIDERS: ADMIT Family Medicine; ATTEND Family Medicine
DX: F17.210 Nicotine dependence, cigarettes, uncomplicated; I95.9 Hypotension, unspecified; I42.9 Cardiomyopathy, unspecified; E11.65 Type 2 diabetes mellitus with hyperglycemia; A59.9 Trichomoniasis, unspecified; Z95.810 Presence of automatic (implantable) cardiac defibrillator; B96.20 Unspecified Escherichia coli [E. coli] as the cause of diseases classified elsewhere; Z53.29 Procedure and treatment not carried out because of patient's decision for other reasons; N30.00 Acute cystitis without hematuria; Z79.4 Long term (current) use of insulin; I50.22 Chronic systolic (congestive) heart failure
CPT/HCPCS: 36415; 71020; 71046; 80053; 80162; 81001; 83519; 83605; 83880; 84145; 84484; 85025; 87040; 87077; 87086; 87186; 93005; 96361; 96374; 96375; 99285